=== PATIENT | female | born 1975 | race Caucasian/White ===

== ENCOUNTER 2016-10-22 21:29 | Emergency (ER) | payer MEDICAID, OTHER ==
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
[2016-10-22] MEDS ORDERED: Ketorolac 60 MG/2 ML SDV IM ONE (23:09)
[2016-10-22 23:47] VITALS: BP 136/99
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
== END 2016-10-22 23:47 | disposition home or self-care (01) ==
LOC: MW.ED 21:29
DX: S80.02XA Contusion of left knee, initial encounter (principal); S80.01XA Contusion of right knee, initial encounter; K21.9 Gastro-esophageal reflux disease without esophagitis; Z90.89 Acquired absence of other organs; Z90.710 Acquired absence of both cervix and uterus; V43.12XA Car passenger injured in collision with other type car in nontraffic accident, initial encounter
CPT/HCPCS: 73562; 73590; 73600; 96372; 99284; J1885; 99283

== ENCOUNTER 2016-10-31 18:55 | Emergency (ER) | payer MEDICAID, OTHER ==
[2016-10-31] MEDS ORDERED: Sodium Chloride 0.9% 10 ML Syringe FLUSH PRN (19:37)
[2016-10-31] MEDS ORDERED: Sodium Chloride 0.9% 2.5 ML Syringe FLUSH PRN (19:37)
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
[2016-10-31] MEDS: Albuterol/Ipratropium 3.0-0.5 MG/3 ML Neb Soln NEB ONE (19:48)
[2016-10-31 20:47] LABS: CHLORIDE,CL 107 mmol/L (98-110); SODIUM,NA 141 mmol/L (136-146)
[2016-10-31 21:47] VITALS: BP 126/79
[2016-10-31] MEDS: Acetaminophen 325 MG Tab PO ONE (21:53)
[2016-10-31] MEDS: Furosemide 40 MG/4 ML VIAL IVPUSH ONE (21:54)
--- NOTE | 2016-11-01 14:03 | CR ---
EXAM DATE: 10/31/16 PATIENT'S AGE: 41 Patient: ODIN [address] Facility: [place], [place] Site . Site : 1975 Study: XRay Chest [id number]/16/2017 8:26:32 PM Ordering Physician: Princess Tolentino Final Report: INDICATION: Chest pain, edema. COMPARISON: none TECHNIQUE: Two view chest. FINDINGS: The lungs are clear. There is no evidence a pneumothorax. The heart, mediastinum and pulmonary vessels are of normal size. There is no evidence of pleural fluid. IMPRESSION: Negative chest. Dictated by Richard Brunner MD @ Oct 31 2016 8:33PM (Electronic Signature) Report Signed by Proxy and Original Signed Document filed in the Medical Record. MTDD
== END 2016-10-31 22:12 | disposition home or self-care (01) ==
LOC: MW.ED 18:55
DX: R63.5 Abnormal weight gain (principal); K21.9 Gastro-esophageal reflux disease without esophagitis; Z98.51 Tubal ligation status; Z90.89 Acquired absence of other organs
CPT/HCPCS: 36415; 71020; 80053; 81001; 83880; 84484; 85025; 85652; 86140; 93005; 94664; 96374; 99284; A9270; J1940

== ENCOUNTER → 2016-11-08 | Outpatient (CLI) | payer MEDICAID | LOC: MW.CHFP 09:45 | PROVIDERS: ATTEND Nurse Practitioner Family | DX: R63.5 Abnormal weight gain (principal); M25.50 Pain in unspecified joint | CPT/HCPCS: 36415; 84443; 86430; 86431 ==

== ENCOUNTER 2016-11-26 08:25 | Emergency (ER) | payer MEDICAID ==
[2016-11-26] MEDS ORDERED: Benzocaine 20% Topical Spray UD MUCMEM ONE (08:41)
[2016-11-26] MEDS ORDERED: Lidocaine 2% Viscous Solution 15 ML Cup PO ONE (08:41)
--- NOTE | 2016-11-26 08:47 | EDM.PDOC ---
ED HPI GENERAL MEDICAL PROBLEM - General Chief Complaint: ENT Problem Stated Complaint: TOOTH Time Seen by Provider: 11/26/16 08:40 Source of Information: Reports: Patient History Limitations: Reports: No limitations - History of Present Illness INITIAL COMMENTS - FREE TEXT/NARRATIVE: History of present illness: [] Patient was eating breakfast and a left lower molar fell out. She just had a dental appointment to fix her upper teeth and has a plan to fix her lower teeth. She states she has pain over her gums the tooth fell out. Review of systems: As per history of present illness and below otherwise all systems reviewed and negative. Past medical history: As per history of present illness and as reviewed below otherwise noncontributory. Surgical history: As per history of present illness and as reviewed below otherwise noncontributory. Social history: No reported history of drug or alcohol abuse. Family history: As per history of present illness and as reviewed below otherwise noncontributory. Physical exam: General: Well developed, well nourished in NAD HEENT: Atraumatic, normocephalic, pupils reactive, negative for conjunctival pallor or scleral icterus, mucous membranes moist, throat clear, neck supple, nontender, trachea midline. No active bleeding. Patient has the tooth in his low back which looks decayed patient states she feels sharp edges where the tooth broke her left and her gum. Will not let me examine it Lungs: Clear to auscultation, breath sounds equal bilaterally, chest nontender. Heart: S1S2, regular, negative for clicks, rubs, or JVD. Abdomen: Soft, nondistended, nontender. Negative for masses or hepatosplenomegaly. Negative for costovertebral tenderness. Pelvis: Stable nontender. Genitourinary: Deferred. Rectal: Deferred. Extremities: Atraumatic, negative for cords or calf pain. Neurovascular unremarkable. Neuro: Awake, alert, oriented. Cranial nerves II through XII unremarkable. Cerebellum unremarkable. Motor and sensory unremarkable throughout. Exam nonfocal. Diagnostics: [] Therapeutics: [] Impression: [] Tooth fracture Plan: [] Dental balls for pain followup with dentist. Definitive disposition and diagnosis as appropriate pending reevaluation and review of above. 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 OB/BYN History: total hysterectomy 2012 Musculoskeletal History: Reports: None Neurological History: Reports: Other (see below) Other Neuro History: psuedo tumors Psychiatric History: Reports: None Endocrine/Metabolic History: Reports: None Hematologic History: Reports: None Immunologic History: Reports: None Oncologic (Cancer) History: Reports: None Dermatologic History: Reports: None - Infectious Disease History Infectious Disease History: Reports: None - Past Surgical History GI Surgical History: Reports: Cholecystectomy Female Surgical History: Reports: section, Tubal ligation Social & Family History - Family History Family Medical History: Noncontributory Other Oncologic Family History: mother have lung cancer & father have tumor in the face - Tobacco Use Smoking Status *Q: Never Smoker Second Hand Smoke Exposure: No - Caffeine Use Caffeine Use: Reports: Coffee - Recreational Drug Use Recreational Drug Use: No ED ROS GENERAL - Review of Systems Review Of Systems: See Below (See history of present illness) ED EXAM, GENERAL - Physical Exam Exam: See Below (See history of present illness) Course - Vital Signs Last Recorded V/S: Last Vital Signs Temp 36.2 C 11/26/16 08:35 Pulse 104 H 11/26/16 08:35 Resp 18 11/26/16 08:35 BP 128/87 11/26/16 08:35 Pulse Ox 97 11/26/16 08:35 - Orders/Labs/Meds Meds: Medications Discontinued Medications Generic Name Dose Route Start Last Admin Trade Name Javier PRN Reason Stop Dose Admin Benzocaine 2 each 11/26/16 08:41 Hurricaine One 20% MUCMEM 11/26/16 08:42 ONETIME ONE Lidocaine HCl 15 ml 11/26/16 08:41 Xylocaine 2% Viscous PO 11/26/16 08:42 ONETIME ONE Departure - Departure Time of Disposition: 08:45 Disposition: Home, Self-Care 01 Condition: good Clinical Impression: Broken tooth-uncomplic Qualifiers: Encounter type: initial encounter Fracture type: open Qualified Code(s): S02.5XXB - Fracture of tooth (traumatic), initial encounter for open fracture Forms: ED Department Discharge Additional Instructions: The following information is given to patients seen in the emergency department who are being discharged to home. This information is to outline your options for follow-up care. We provide all patients seen in our emergency department with a follow-up referral. The need for follow-up, as well as the timing and circumstances, are variable depending upon the specifics of your emergency department visit. If you don't have a primary care physician on staff, we will provide you with a referral. We always advise you to contact your personal physician following an emergency department visit to inform them of the circumstance of the visit and for follow-up with them and/or the need for any referrals to a consulting specialist. The emergency department will also refer you to a specialist when appropriate. This referral assures that you have the opportunity for follow-up care with a specialist. All of these measure are taken in an effort to provide you with optimal care, which includes your follow-up. Under all circumstances we always encourage you to contact your private physician who remains a resource for coordinating your care. When calling for follow-up care, please make the office aware that this follow-up is from your recent emergency room visit. If for any reason you are refused follow-up, please contact the [facility] Emergency Department at and asked to speak to the emergency department charge nurse. Dental balls for pain, followup with a dentist or primary care for pain control [facility] [address] [place] [id number]
[2016-11-26 09:00] VITALS: BP 126/72
== END 2016-11-26 08:53 | disposition home or self-care (01) ==
LOC: MW.ED 08:25
DX: S02.5XXB Fracture of tooth (traumatic), initial encounter for open fracture (principal); K02.9 Dental caries, unspecified; J45.909 Unspecified asthma, uncomplicated; K21.9 Gastro-esophageal reflux disease without esophagitis; Z90.710 Acquired absence of both cervix and uterus; Z90.49 Acquired absence of other specified parts of digestive tract; Z98.51 Tubal ligation status; X58.XXXA Exposure to other specified factors, initial encounter
CPT/HCPCS: 99282; A9270; 99283

== ENCOUNTER 2017-04-12 11:01 | Emergency (ER) | payer MEDICAID ==
[2017-04-12 11:13] VITALS: BP 150/89
--- NOTE | 2017-04-12 11:19 | EDM.PDOC ---
ED HPI GENERAL MEDICAL PROBLEM - General Chief Complaint: ENT Problem Stated Complaint: ABSCESS TOOTH Time Seen by Provider: 04/12/17 11:04 - History of Present Illness INITIAL COMMENTS - FREE TEXT/NARRATIVE: HISTORY AND PHYSICAL: History of present illness: Patient 41-year-old white female presents with a concern of dental pain is left upper molar region with associated swelling she denies fever chills nausea vomiting or other complaints Review of systems: As per history of present illness and below otherwise all systems reviewed and negative. Past medical history: As per history of present illness and as reviewed below otherwise noncontributory. Surgical history: As per history of present illness and as reviewed below otherwise noncontributory. Social history: No reported history of drug or alcohol abuse. Family history: As per history of present illness and as reviewed below otherwise noncontributory. Physical exam: HEENT: Atraumatic, normocephalic, pupils reactive, negative for conjunctival pallor or scleral icterus, mucous membranes moist, throat clear, neck supple, nontender, trachea midline. Generally poor dentition with multiple dental caries noted she does have gingival edema in the region of the left upper molar consistent with Lungs: Clear to auscultation, breath sounds equal bilaterally, chest nontender. Heart: S1S2, regular, negative for clicks, rubs, or JVD. Abdomen: Soft, nondistended, nontender. Negative for masses or hepatosplenomegaly. Negative for costovertebral tenderness. Pelvis: Stable nontender. Genitourinary: Deferred. Rectal: Deferred. Extremities: Atraumatic, negative for cords or calf pain. Neurovascular unremarkable. Neuro: Awake, alert, oriented. Cranial nerves II through XII unremarkable. Cerebellum unremarkable. Motor and sensory unremarkable throughout. Exam nonfocal. Diagnostics: None Therapeutics: None Impression: #1 dentalgia #2 dental caries #3 dental abscess Definitive disposition and diagnosis as appropriate pending reevaluation and review of above. 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 OB/BYN History: total hysterectomy 2012 Musculoskeletal History: Reports: None Neurological History: Reports: Other (See Below) Other Neuro History: psuedo tumors Psychiatric History: Reports: None Endocrine/Metabolic History: Reports: None Hematologic History: Reports: None Immunologic History: Reports: None Oncologic (Cancer) History: Reports: None Dermatologic History: Reports: None - Infectious Disease History Infectious Disease History: Reports: None - Past Surgical History Female Surgical History: Reports: Section, Tubal Ligation Social & Family History - Family History Family Medical History: Noncontributory Other Oncologic Family History: mother have lung cancer & father have tumor in the face - Tobacco Use Smoking Status *Q: Never Smoker Second Hand Smoke Exposure: No - Caffeine Use Caffeine Use: Reports: Coffee - Recreational Drug Use Recreational Drug Use: No ED ROS GENERAL - Review of Systems Review Of Systems: ROS reveals no pertinent complaints other than HPI. ED EXAM, GENERAL - Physical Exam Exam: See Below (See dictation) Course - Vital Signs Last Recorded V/S: Last Vital Signs Temp 36.5 C 04/12/17 11:09 Pulse 108 H 04/12/17 11:09 Resp 20 04/12/17 11:09 BP 150/89 H 04/12/17 11:09 Pulse Ox 96 04/12/17 11:09 Departure - Departure Time of Disposition: 11:19 Disposition: Home, Self-Care 01 Condition: Good Clinical Impression: Dental caries, Dental abscess, Dentalgia - Discharge Information Referrals: PCP,None [Primary Care Provider] -
== END 2017-04-12 11:25 | disposition home or self-care (01) ==
LOC: MW.ED 11:01
DX: K04.7 Periapical abscess without sinus (principal); K02.9 Dental caries, unspecified; J45.909 Unspecified asthma, uncomplicated; K21.9 Gastro-esophageal reflux disease without esophagitis; Z91.040 Latex allergy status; Z90.710 Acquired absence of both cervix and uterus
CPT/HCPCS: 99282

== ENCOUNTER 2017-04-14 15:47 | Emergency (ER) | payer MEDICAID ==
[2017-04-14] MEDS ORDERED: cefTRIAXone 1,000 MG in Lidocaine 1% 4 ML IM ONE (16:17)
[2017-04-14] MEDS ORDERED: Lidocaine 2% Viscous Solution 15 ML Cup PO ONE (16:17)
[2017-04-14] MEDS ORDERED: Benzocaine 20% Topical Spray UD MUCMEM ONE (16:17)
--- NOTE | 2017-04-14 16:19 | EDM.PDOC ---
ED HPI GENERAL MEDICAL PROBLEM - General Chief Complaint: General Stated Complaint: ABSCESS TOOTH Time Seen by Provider: 04/14/17 16:13 Source of Information: Reports: Patient History Limitations: Reports: No Limitations - History of Present Illness INITIAL COMMENTS - FREE TEXT/NARRATIVE: HISTORY AND PHYSICAL: []41-year-old female presenting with increasing edema to left side of her face History of Present Illness: []Patient patient was treated 2 days ago in ER for abscess to her tooth. Is worsening in her symptoms. Patient also has underlying asthma Review of Systems: As per history of present illness and below otherwise all systems reviewed and negative. Past medical history: As per history of present illness and as reviewed below otherwise noncontributory. Surgical history: As per history of present illness and as reviewed below otherwise noncontributory. Social history: No reported history of drug or alcohol abuse. Family history: As per history of present illness and as reviewed below otherwise noncontributory. Physical exam: Alert and oriented female who is speaking in full sentences mild shortness of breath HEENT: Atraumatic, normocehpalic, pupils reactive, negative for conjunctival pallor or scleral icterus, mucous membranes moist, throat clear, neck supple, nontender, trachea midline. Edema noted to the left lower jaw. Exquisite tenderness noted to the left lower jaw at tooth #17 & #18 Lungs: Clear to auscultation, breath sounds equal bilaterally, chest non tender. Heart: S1S2, regular, negative for clicks, rubs, or JVD. Abdomen: Soft, nondistended, nontender. Negative for masses or hepatossplenmegaly. Negative for costovertebral tenderness. Pelvis: Stable nontender. Genitourinary: Deferred. Rectal: Deferred Extremities: Atraumatic, negative for cords or calf pain. Neurovascular unremarkable. Neuro: Awake, alert, oriented. Cranial nerves II through XII unremarkable. Cerebellum unremarkable. Motor and sensory unremarkable throughout. Exam nonfocal. Diagnostics: [] Therapeutics: [Dental balls] Rocephin IM Impression: [Dental abscess] Plan: [Discharged to home Change to Augmentin 875 twice a day Follow-up with your dentist next week] Definitive disposition and diagnosis as appropriate pending reevaluation and review of above. Onset: Gradual Duration: Day(s):, Getting Worse Location: Reports: Face - Related Data Allergies Allergy/AdvReac Type Severity Reaction Status Date / Time latex Allergy Airway Verified 10/31/16 19:07 Tightness Home Meds: Home Meds Albuterol Sulfate [Proair Hfa] 8.5 gm IH ASDIRECTED 07/22/16 [History] Gabapentin [Neurontin] 400 mg PO BID 11/26/16 [History] Amoxicillin/Potassium Clav [Augmentin 875-125 Tablet] 1 each PO BID #20 tablet 04/14/17 [Rx] Past Medical History HEENT History: Reports: None Cardiovascular History: Reports: None Respiratory History: Reports: Asthma Gastrointestinal History: Reports: GERD Genitourinary History: Reports: None 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 OB/BYN History: total hysterectomy 2012 Musculoskeletal History: Reports: None Neurological History: Reports: Other (See Below) Other Neuro History: psuedo tumors Psychiatric History: Reports: None Endocrine/Metabolic History: Reports: None Hematologic History: Reports: None Immunologic History: Reports: None Oncologic (Cancer) History: Reports: None Dermatologic History: Reports: None - Infectious Disease History Infectious Disease History: Reports: None - Past Surgical History Female Surgical History: Reports: Section, Tubal Ligation Social & Family History - Family History Family Medical History: Noncontributory Other Oncologic Family History: mother have lung cancer & father have tumor in the face - Tobacco Use Smoking Status *Q: Never Smoker Second Hand Smoke Exposure: No - Caffeine Use Caffeine Use: Reports: Coffee - Recreational Drug Use Recreational Drug Use: No ED ROS GENERAL - Review of Systems Review Of Systems: ROS reveals no pertinent complaints other than HPI. ED EXAM, GENERAL - Physical Exam Exam: See Below (See dictation) Departure - Departure Time of Disposition: 16:19 Disposition: Home, Self-Care 01 Condition: Good Clinical Impression: Dental abscess - Discharge Information Prescriptions: Amoxicillin/Potassium Clav [Augmentin 875-125 Tablet] 1 each PO BID #20 tablet Referrals: PCP,None [Primary Care Provider] -
[2017-04-14] MEDS ORDERED: Albuterol/Ipratropium 3.0-0.5 MG/3 ML Neb Soln NEB ONE (16:34)
[2017-04-14 16:58] VITALS: BP 120/78
== END 2017-04-14 16:55 | disposition home or self-care (01) ==
LOC: MW.ED 15:47
DX: K04.7 Periapical abscess without sinus (principal); J45.909 Unspecified asthma, uncomplicated; K21.9 Gastro-esophageal reflux disease without esophagitis; Z91.040 Latex allergy status; Z90.710 Acquired absence of both cervix and uterus
CPT/HCPCS: 94664; 96372; 99284; A9270; J0696; 99282

== ENCOUNTER 2017-08-15 01:19 | Emergency (ER) | payer MEDICAID ==
[2017-08-15 01:31] VITALS: BP 149/96
--- NOTE | 2017-08-15 01:43 | EDM.PDOC ---
ED HPI GENERAL MEDICAL PROBLEM - General Chief Complaint: ENT Problem Stated Complaint: TOOTH ACHE Time Seen by Provider: 08/15/17 01:39 - History of Present Illness INITIAL COMMENTS - FREE TEXT/NARRATIVE: HISTORY AND PHYSICAL: History of present illness: Patient's 42-year-old white female sensory concern of dental pain has been worse over last 2448 hrs. she denies any fever chills nausea vomiting Review of systems: As per history of present illness and below otherwise all systems reviewed and negative. Past medical history: As per history of present illness and as reviewed below otherwise noncontributory. Surgical history: As per history of present illness and as reviewed below otherwise noncontributory. Social history: No reported history of drug or alcohol abuse. Family history: As per history of present illness and as reviewed below otherwise noncontributory. Physical exam: HEENT: Atraumatic, normocephalic, pupils reactive, negative for conjunctival pallor or scleral icterus, mucous membranes moist, throat clear, neck supple, nontender, trachea midline. Generally poor dentition with a left lower molar with dental caries and secondary dental fracture Lungs: Clear to auscultation, breath sounds equal bilaterally, chest nontender. Heart: S1S2, regular, negative for clicks, rubs, or JVD. Abdomen: Soft, nondistended, nontender. Negative for masses or hepatosplenomegaly. Negative for costovertebral tenderness. Pelvis: Stable nontender. Genitourinary: Deferred. Rectal: Deferred. Extremities: Atraumatic, negative for cords or calf pain. Neurovascular unremarkable. Neuro: Awake, alert, oriented. Cranial nerves II through XII unremarkable. Cerebellum unremarkable. Motor and sensory unremarkable throughout. Exam nonfocal. Diagnostics: None Therapeutics: None Impression: #1 dentalgia #2 dental cariewith secondary dental fracture #3 dental abscess dental pain Pain Score (Numeric/FACES): 10 - Related Data Allergies Allergy/AdvReac Type Severity Reaction Status Date / Time latex Allergy Airway Verified 08/15/17 01:29 Tightness Home Meds: Home Meds Albuterol Sulfate [Proair Hfa] 8.5 gm IH ASDIRECTED 07/22/16 [History] Gabapentin [Neurontin] 400 mg PO BID 11/26/16 [History] Amoxicillin/Potassium Clav [Augmentin 875-125 Tablet] 1 each PO BID #20 tablet 04/14/17 [Rx] methylPREDNISolone [Medrol] 4 mg PO ASDIRECTED #1 dosepk 04/14/17 [Rx] Past Medical History HEENT History: Reports: None Cardiovascular History: Reports: None Respiratory History: Reports: Asthma Gastrointestinal History: Reports: GERD Genitourinary History: Reports: None 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 OB/BYN History: total hysterectomy 2012 Musculoskeletal History: Reports: None Neurological History: Reports: Other (See Below) Other Neuro History: psuedo tumors Psychiatric History: Reports: None Endocrine/Metabolic History: Reports: None Hematologic History: Reports: None Immunologic History: Reports: None Oncologic (Cancer) History: Reports: None Dermatologic History: Reports: None - Infectious Disease History Infectious Disease History: Reports: None - Past Surgical History GI Surgical History: Reports: Cholecystectomy Female Surgical History: Reports: Section, Tubal Ligation Social & Family History - Family History Family Medical History: Noncontributory Other Oncologic Family History: mother have lung cancer & father have tumor in the face - Tobacco Use Smoking Status *Q: Never Smoker Second Hand Smoke Exposure: No - Caffeine Use Caffeine Use: Reports: Coffee - Recreational Drug Use Recreational Drug Use: No ED ROS GENERAL - Review of Systems Review Of Systems: ROS reveals no pertinent complaints other than HPI. ED EXAM, GENERAL - Physical Exam Exam: See Below (dictated) Course - Vital Signs Last Recorded V/S: Last Vital Signs Temp 36.2 C 08/15/17 01:29 Pulse 90 08/15/17 01:29 Resp 18 08/15/17 01:29 BP 149/96 H 08/15/17 01:29 Pulse Ox 98 08/15/17 01:29 Departure - Departure Time of Disposition: 01:42 Disposition: Home, Self-Care 01 Condition: Good Clinical Impression: Fracture of tooth, Dental caries, Dental abscess, Dentalgia - Discharge Information Referrals: PCP,None [Primary Care Provider] - Additional Instructions: The following information is given to patients seen in the emergency department who are being discharged to home. This information is to outline your options for follow-up care. We provide all patients seen in our emergency department with a follow-up referral. The need for follow-up, as well as the timing and circumstances, are variable depending upon the specifics of your emergency department visit. If you don't have a primary care physician on staff, we will provide you with a referral. We always advise you to contact your personal physician following an emergency department visit to inform them of the circumstance of the visit and for follow-up with them and/or the need for any referrals to a consulting specialist. The emergency department will also refer you to a specialist when appropriate. This referral assures that you have the opportunity for followup care with a specialist. All of these measure are taken in an effort to provide you with optimal care, which includes your followup. Under all circumstances we always encourage you to contact your private physician who remains a resource for coordinating your care. When calling for followup care, please make the office aware that this follow-up is from your recent emergency room visit. If for any reason you are refused follow-up, please contact the [facility] emergency department at and asked to speak to the emergency department charge nurse. Mahad Stephens as prescribed follow-up dentist as discussed return as needed as discussed
== END 2017-08-15 02:00 | disposition home or self-care (01) ==
LOC: MW.ED 01:19
DX: K03.81 Cracked tooth (principal); K02.9 Dental caries, unspecified; K04.7 Periapical abscess without sinus; J45.909 Unspecified asthma, uncomplicated; Z91.040 Latex allergy status
CPT/HCPCS: 99282

== ENCOUNTER 2017-10-03 16:23 | Emergency (ER) | payer SELFPAY ==
--- NOTE | 2017-10-03 17:11 | EDM.PDOC ---
ED HPI GENERAL MEDICAL PROBLEM - General Chief Complaint: Gastrointestinal Problem Stated Complaint: PT VOMITING Time Seen by Provider: 10/03/17 17:00 - History of Present Illness INITIAL COMMENTS - FREE TEXT/NARRATIVE: HISTORY AND PHYSICAL: History of present illness: Patient is 42-year-old female presents with concern of vomiting and possible influenza she states she's been exposed to other people similar illnesses. She denies fever chills abdominal pain other concern Review of systems: As per history of present illness and below otherwise all systems reviewed and negative. Past medical history: As per history of present illness and as reviewed below otherwise noncontributory. Surgical history: As per history of present illness and as reviewed below otherwise noncontributory. Social history: No reported history of drug or alcohol abuse. Family history: As per history of present illness and as reviewed below otherwise noncontributory. Physical exam: HEENT: Atraumatic, normocephalic, pupils reactive, negative for conjunctival pallor or scleral icterus, mucous membranes dry, throat clear, neck supple, nontender, trachea midline. Lungs: Clear to auscultation, breath sounds equal bilaterally, chest nontender. Heart: S1S2, regular, negative for clicks, rubs, or JVD. Abdomen: Soft, nondistended, nontender. Negative for masses or hepatosplenomegaly. Negative for costovertebral tenderness. Pelvis: Stable nontender. Genitourinary: Deferred. Rectal: Deferred. Extremities: Atraumatic, negative for cords or calf pain. Neurovascular unremarkable. Neuro: Awake, alert, oriented. Cranial nerves II through XII unremarkable. Cerebellum unremarkable. Motor and sensory unremarkable throughout. Exam nonfocal. Diagnostics: CBC CMP and lipase UA hCG Therapeutics: Normal saline 1 L bolus Impression: # 1 vomiting with dehydration Definitive disposition and diagnosis as appropriate pending reevaluation and review of above. - Related Data Allergies Allergy/AdvReac Type Severity Reaction Status Date / Time latex Allergy Airway Verified 08/15/17 01:29 Tightness Home Meds: Home Meds Albuterol Sulfate [Proair Hfa] 8.5 gm IH ASDIRECTED 07/22/16 [History] Gabapentin [Neurontin] 400 mg PO BID 11/26/16 [History] Amoxicillin/Potassium Clav [Augmentin 875-125 Tablet] 1 each PO BID #20 tablet 04/14/17 [Rx] methylPREDNISolone [Medrol] 4 mg PO ASDIRECTED #1 dosepk 04/14/17 [Rx] Past Medical History HEENT History: Reports: None Cardiovascular History: Reports: None Respiratory History: Reports: Asthma Gastrointestinal History: Reports: GERD Genitourinary History: Reports: None [employer] History: Reports: Other OB/BYN History: total hysterectomy 2012 Musculoskeletal History: Reports: None Neurological History: Reports: Other (See Below) Other Neuro History: psuedo tumors Psychiatric History: Reports: None Endocrine/Metabolic History: Reports: None Hematologic History: Reports: None Immunologic History: Reports: None Oncologic (Cancer) History: Reports: None Dermatologic History: Reports: None - Infectious Disease History Infectious Disease History: Reports: None - Past Surgical History GI Surgical History: Reports: Cholecystectomy Female Surgical History: Reports: Section, Tubal Ligation Social & Family History - Family History Family Medical History: Noncontributory Other Oncologic Family History: mother have lung cancer & father have tumor in the face - Tobacco Use Smoking Status *Q: Never Smoker Second Hand Smoke Exposure: No - Caffeine Use Caffeine Use: Reports: Coffee - Recreational Drug Use Recreational Drug Use: No ED ROS GENERAL - Review of Systems Review Of Systems: ROS reveals no pertinent complaints other than HPI. ED EXAM, GENERAL - Physical Exam Exam: See Below (See dictation) Course - Orders/Labs/Meds Orders: Active Orders 24 hr Category Date Time Status CBC WITH AUTO DIFF [HEME] Stat Lab 10/03/17 17:00 Ordered COMPREHENSIVE METABOLIC PN,CMP [CHEM] Stat Lab 10/03/17 17:00 Ordered HCG QUALITATIVE,SERUM [CHEM] Stat Lab 10/03/17 17:00 Ordered LIPASE [CHEM] Stat Lab 10/03/17 17:01 Ordered UA W/MICROSCOPIC [URIN] Stat Lab 10/03/17 17:00 Ordered Departure - Departure Time of Disposition: 17:10 Disposition: Home, Self-Care 01 Condition: Good Clinical Impression: Vomiting, Dehydration - Discharge Information Referrals: PCP,None [Primary Care Provider] - Additional Instructions: The following information is given to patients seen in the emergency department who are being discharged to home. This information is to outline your options for follow-up care. We provide all patients seen in our emergency department with a follow-up referral. The need for follow-up, as well as the timing and circumstances, are variable depending upon the specifics of your emergency department visit. If you don't have a primary care physician on staff, we will provide you with a referral. We always advise you to contact your personal physician following an emergency department visit to inform them of the circumstance of the visit and for follow-up with them and/or the need for any referrals to a consulting specialist. The emergency department will also refer you to a specialist when appropriate. This referral assures that you have the opportunity for followup care with a specialist. All of these measure are taken in an effort to provide you with optimal care, which includes your followup. Under all circumstances we always encourage you to contact your private physician who remains a resource for coordinating your care. When calling for followup care, please make the office aware that this follow-up is from your recent emergency room visit. If for any reason you are refused follow-up, please contact the [facility] emergency department at and asked to speak to the emergency department charge nurse. Follow-up primary medical doctor 1-2 days Zofran as prescribed push fluids clear liquids as directed and return as needed as discussed - My Orders Last 24 Hours: My Active Orders 10/03/17 17:00 CBC WITH AUTO DIFF [HEME] Stat COMPREHENSIVE METABOLIC PN,CMP [CHEM] Stat HCG QUALITATIVE,SERUM [CHEM] Stat UA W/MICROSCOPIC [URIN] Stat 10/03/17 17:01 LIPASE [CHEM] Stat - Assessment/Plan Last 24 Hours: My Active Orders 10/03/17 17:00 CBC WITH AUTO DIFF [HEME] Stat COMPREHENSIVE METABOLIC PN,CMP [CHEM] Stat HCG QUALITATIVE,SERUM [CHEM] Stat UA W/MICROSCOPIC [URIN] Stat 10/03/17 17:01 LIPASE [CHEM] Stat
[2017-10-03] MEDS ORDERED: Ondansetron 4 MG/2 ML SDV IVPUSH ONE (17:35)
[2017-10-03] MEDS ORDERED: Sodium Chloride 0.9% 1,000 ML IV ONE (17:35)
[2017-10-03 17:42] LABS: CHLORIDE,CL 103 mmol/L (98-110); SODIUM,NA 138 mmol/L (136-146)
[2017-10-03 18:45] VITALS: BP 121/87
== END 2017-10-03 18:46 | disposition home or self-care (01) ==
LOC: MW.ED 16:23
DX: E86.0 Dehydration (principal); R11.10 Vomiting, unspecified; J45.909 Unspecified asthma, uncomplicated; Z91.040 Latex allergy status
CPT/HCPCS: 36415; 80053; 81001; 83690; 84702; 84703; 85025; 87804; 96374; 99284; J2405; J7040; 99283

== ENCOUNTER 2017-10-13 14:30 | Emergency (ER) | payer SELFPAY ==
--- NOTE | 2017-10-13 15:50 | CR ---
EXAMINATION: Two-view chest (PA and Lateral views). HISTORY: Shortness of breath. FINDINGS: The trachea is midline. The cardiomediastinal silhouette is within normal limits. No pulmonary infilt rates, effusions or pneumothorax. Osseous structures appear unremarkable. IMPRESSION: No acute cardiopulmonary process.
[2017-10-13] MEDS ORDERED: Albuterol/Ipratropium 3.0-0.5 MG/3 ML Neb Soln NEB ONE ×2 (15:55→16:25)
[2017-10-13] MEDS ORDERED: methylPREDNISolone Sodium Succinate 125 MG/2 ML SDV IVPUSH ONE (15:55)
--- NOTE | 2017-10-13 16:05 | EDM.PDOC ---
ED HPI GENERAL MEDICAL PROBLEM - General Chief Complaint: Respiratory Problem Stated Complaint: COUGH, SOB Time Seen by Provider: 10/13/17 15:50 Source of Information: Reports: Patient History Limitations: Reports: No Limitations - History of Present Illness INITIAL COMMENTS - FREE TEXT/NARRATIVE: HISTORY AND PHYSICAL: History of present illness: Patient is a 42-year-old female who presents to the emergency room with complaints of cough and shortness of breath 1 month. She states that she has a history of asthma and has been using her inhaler frequently. She feels that her inhaler is no longer controlling her symptoms. states she has coughing spells and is concerned she may have a pneumonia. Has no history of smoking. Denies any fever, chills, chest pain, abdominal pain, nausea, vomiting or diarrhea. Last week did have an episode of GI symptoms but those have resolved. Review of systems: As per history of present illness and below otherwise all systems reviewed and negative. Past medical history: As per history of present illness and as reviewed below otherwise noncontributory. Surgical history: As per history of present illness and as reviewed below otherwise noncontributory. Social history: No reported history of drug or alcohol abuse. Family history: As per history of present illness and as reviewed below otherwise noncontributory. Physical exam: General: Well-developed and well-nourished 42-year-old female. Alert and oriented. Nontoxic appearing and in no acute distress. HEENT: Atraumatic, normocephalic, pupils reactive, negative for conjunctival pallor or scleral icterus, mucous membranes moist, throat clear, neck supple, nontender, trachea midline. Lungs: inspiratory next week. Wheezing noted to posterior bases bilaterally, otherwise clear, chest nontender. dry nonproductive, hacking, cough noted. Heart: S1S2, regular rate and rhythm, no overt murmur Abdomen: Soft, nondistended, nontender. Negative for masses or hepatosplenomegaly. Negative for costovertebral tenderness. Pelvis: Stable nontender. Genitourinary: Deferred. Rectal: Deferred. Extremities: Atraumatic, negative for cords or calf pain. Neurovascular unremarkable. Neuro: Awake, alert, oriented. Cranial nerves II through XII unremarkable. Cerebellum unremarkable. Motor and sensory unremarkable throughout. Exam nonfocal. Oxygen sats remain 90-93% on RA after 2 duo neb treatments. Her lung sounds have improved, better air exchange. Did offer her admission, which she declined. Chest x-ray shows no pneumonia or infiltrates. Due to patient's longevity of symptoms, history of asthma and physical assessment and will treat her with azithromycin and Medrol Dosepak. She states she has been using her daughter's DuoNeb as she has a machine, and is requesting medication for home use. Phenergan with codiene (4oz-NRF) and DuoNeb (#1 box) has been prescribed for comfort. Supportive care measures were reviewed. We discussed signs and symptoms that would prompt her to come back to the emergency room. She voices understanding and is agreeable to plan of care. She denies any further questions at this time. Diagnostics: chest x-ray Therapeutics: Solu-Medrol, DuoNeb Impression: Bronchitis, with a history of asthma Plan: 1. Please take your medications as directed. Phenergan with Codiene has been prescribed for your cough. Do not take this will driving or needing to be functioning outside of the home as it may cause drowsiness. You may continue to use your inhaler, do not take more than directed. Duo Nebs have been prescribed for difficulty breathing/ shortness of breath. 2. Follow-up with your primary care provider in the next 1-2 days. Return to the ED as needed and as discussed. Definitive disposition and diagnosis as appropriate pending reevaluation and review of above. Duration: Week(s): Location: Reports: Chest Chest Pain Score (Numeric/FACES): 4 - Related Data Allergies Allergy/AdvReac Type Severity Reaction Status Date / Time latex Allergy Airway Verified 08/15/17 01:29 Tightness Penicillins Allergy Other Verified 10/13/17 15:04 Home Meds: Home Meds Albuterol Sulfate [Proair Hfa] 8.5 gm IH ASDIRECTED 07/22/16 [History] Folic Acid 0.8 mg PO DAILY 10/13/17 [History] Methotrexate 2.5 mg PO Q7D 10/13/17 [History] Past Medical History HEENT History: Reports: None Cardiovascular History: Reports: None Respiratory History: Reports: Asthma Gastrointestinal History: Reports: GERD Genitourinary History: Reports: None [employer]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[employer]IVE History: Reports: Other OB/BYN History: total hysterectomy 2013 Musculoskeletal History: Reports: None Neurological History: Reports: Other (See Below) Other Neuro History: psuedo tumors Psychiatric History: Reports: None Endocrine/Metabolic History: Reports: None Hematologic History: Reports: None Immunologic History: Reports: None Oncologic (Cancer) History: Reports: None Dermatologic History: Reports: None - Infectious Disease History Infectious Disease History: Reports: None - Past Surgical History GI Surgical History: Reports: Cholecystectomy Female Surgical History: Reports: Section, Tubal Ligation Social & Family History - Family History Family Medical History: Noncontributory Other Oncologic Family History: mother have lung cancer & father have tumor in the face - Tobacco Use Smoking Status *Q: Never Smoker Second Hand Smoke Exposure: No - Caffeine Use Caffeine Use: Reports: Coffee, Energy Drinks, Soda, Tea - Recreational Drug Use Recreational Drug Use: No ED ROS GENERAL - Review of Systems Review Of Systems: ROS reveals no pertinent complaints other than HPI. ED EXAM, GENERAL - Physical Exam Exam: See Below (See dictation) Course - Vital Signs Last Recorded V/S: Last Vital Signs Temp 98.5 F 10/13/17 15:11 Pulse 103 H 10/13/17 15:11 Resp 18 10/13/17 15:11 BP 135/86 10/13/17 15:11 Pulse Ox 92 L 10/13/17 15:11 - Orders/Labs/Meds Orders: Active Orders 24 hr Category Date Time Status RT Aerosol Therapy [RC] ASDIRECTED Care 10/13/17 15:55 Active RT Aerosol Therapy [RC] ASDIRECTED Care 10/13/17 16:25 Active Meds: Medications Discontinued Medications Generic Name Dose Route Start Last Admin Trade Name Javier PRN Reason Stop Dose Admin Albuterol/Ipratropium 3 ml 10/13/17 15:55 10/13/17 16:10 Duoneb 3.0-0.5 Mg/3 Ml NEB 10/13/17 15:56 3 ml ONETIME ONE Administration Albuterol/Ipratropium 3 ml 10/13/17 16:25 10/13/17 16:29 Duoneb 3.0-0.5 Mg/3 Ml NEB 10/13/17 16:26 3 ml ONETIME ONE Administration Methylprednisolone Sodium Succinate 125 mg 10/13/17 15:55 10/13/17 16:09 Solu-Medrol IVPUSH 10/13/17 15:56 125 mg ONETIME ONE Administration Departure - Departure Time of Disposition: 16:05 Disposition: Home, Self-Care 01 Clinical Impression: Bronchitis - Discharge Information Instructions: Acute Bronchitis, Adult, [id number] Referrals: Ramirez Salazar DO [Primary Care Provider] - Forms: ED Department Discharge Additional Instructions: My general discharge The following information is given to patients seen in the emergency department who are being discharged to home. This information is to outline your options for follow-up care. We provide all patients seen in our emergency department with a follow-up referral. The need for follow-up, as well as the timing and circumstances, are variable depending upon the specifics of your emergency department visit. If you don't have a primary care physician on staff, we will provide you with a referral. We always advise you to contact your personal physician following an emergency department visit to inform them of the circumstance of the visit and for follow-up with them and/or the need for any referrals to a consulting specialist. The emergency department will also refer you to a specialist when appropriate. This referral assures that you have the opportunity for follow-up care with a specialist. All of these measure are taken in an effort to provide you with optimal care, which includes your follow-up. Under all circumstances we always encourage you to contact your private physician who remains a resource for coordinating your care. When calling for follow-up care, please make the office aware that this follow-up is from your recent emergency room visit. If for any reason you are refused follow-up, please contact the [facility] Emergency Department at and asked to speak to the emergency department charge nurse. [facility] [address] [place] [id number] 1. Please take your medications as directed. Phenergan with Codiene has been prescribed for your cough. Do not take this will driving or needing to be functioning outside of the home as it may cause drowsiness. You may continue to use your inhaler, do not take more than directed. Duo Nebs have been prescribed for difficulty breathing/ shortness of breath. 2. Follow-up with your primary care provider in the next 1-2 days. Return to the ED as needed and as discussed. - My Orders Last 24 Hours: My Active Orders 10/13/17 15:55 RT Aerosol Therapy [RC] ASDIRECTED 10/13/17 16:25 RT Aerosol Therapy [RC] ASDIRECTED - Assessment/Plan Last 24 Hours: My Active Orders 10/13/17 15:55 RT Aerosol Therapy [RC] ASDIRECTED 10/13/17 16:25 RT Aerosol Therapy [RC] ASDIRECTED
[2017-10-13 16:57] VITALS: BP 122/84
== END 2017-10-13 16:54 | disposition home or self-care (01) ==
LOC: MW.ED 14:30
DX: J40 Bronchitis, not specified as acute or chronic (principal); K21.9 Gastro-esophageal reflux disease without esophagitis; Z88.0 Allergy status to penicillin; Z91.040 Latex allergy status
CPT/HCPCS: 71046; 94640; 96372; 99283; J2930; 99284

== ENCOUNTER 2017-10-22 12:39 | Emergency (ER) | payer SELFPAY ==
[2017-10-22] MEDS ORDERED: Albuterol/Ipratropium 3.0-0.5 MG/3 ML Neb Soln ONE (13:12)
[2017-10-22] MEDS ORDERED: Albuterol 0.5% 5 MG/ML Neb Soln 20 ML Bottle NEB ONE (13:16)
[2017-10-22] MEDS ORDERED: Albuterol/Ipratropium 3.0-0.5 MG/3 ML Neb Soln NEB ONE (13:17)
[2017-10-22] MEDS ORDERED: predniSONE 20 MG Tab PO ONE (13:18)
[2017-10-22] MEDS ORDERED: Sodium Chloride 0.9% 2.5 ML Syringe FLUSH PRN (13:45)
[2017-10-22] MEDS ORDERED: Sodium Chloride 0.9% 1,000 ML IV ONE (13:45)
[2017-10-22] MEDS ORDERED: Sodium Chloride 0.9% 10 ML Syringe FLUSH PRN (13:45)
[2017-10-22] MEDS ORDERED: Magnesium Sulfate/Water 2 GM in Premix Bag 1 BAG IV ONE (13:45)
[2017-10-22] MEDS ORDERED: Albuterol 0.083% 2.5 MG/3 ML Neb Soln NEB ONE (13:45)
--- NOTE | 2017-10-22 15:35 | EDM.PDOC ---
ED HPI GENERAL MEDICAL PROBLEM - General Chief Complaint: Respiratory Problem Stated Complaint: COUGH Time Seen by Provider: 10/22/17 12:40 Source of Information: Reports: Patient History Limitations: Reports: No Limitations - History of Present Illness INITIAL COMMENTS - FREE TEXT/NARRATIVE: History of present illness: []Patient has had a cough for a month that has intermittently improved with antibiotics, inhalers and steroids. Today symptoms have worsened and she ran out of her usual inhaler. Review of systems: As per history of present illness and below otherwise all systems reviewed and negative. Past medical history: As per history of present illness and as reviewed below otherwise noncontributory. Surgical history: As per history of present illness and as reviewed below otherwise noncontributory. Social history: No reported history of drug or alcohol abuse. Family history: As per history of present illness and as reviewed below otherwise noncontributory. Physical exam: General: Well developed, well nourished in respiratory distress HEENT: Atraumatic, normocephalic, pupils reactive, negative for conjunctival pallor or scleral icterus, mucous membranes moist, throat clear, neck supple, nontender, trachea midline. Lungs: Seen bilaterally to auscultation, breath sounds equal bilaterally, chest nontender. Heart: S1S2, regular, negative for clicks, rubs, or JVD. Abdomen: Soft, nondistended, nontender. Negative for masses or hepatosplenomegaly. Negative for costovertebral tenderness. Pelvis: Stable nontender. Genitourinary: Deferred. Rectal: Deferred. Extremities: Atraumatic, negative for cords or calf pain. Neurovascular unremarkable. Neuro: Awake, alert, oriented. Cranial nerves II through XII unremarkable. Cerebellum unremarkable. Motor and sensory unremarkable throughout. Exam nonfocal. Diagnostics: []Tachycardic and hypoxic. CBC Shows white count of 13 without a shift, chemistries normal chest x-ray is negative Therapeutics: []IV fluid, DuoNeb 3, albuterol 2, prednisone, magnesium Impression: []Acute chronic bronchitis Plan: []Medrol Dosepak, Combivent inhaler Tessalon pearls for cough increase fluids follow-up with PMD. Definitive disposition and diagnosis as appropriate pending reevaluation and review of above. Chest Pain Score (Numeric/FACES): 3 - Related Data Allergies Allergy/AdvReac Type Severity Reaction Status Date / Time latex Allergy Airway Verified 10/22/17 13:05 Tightness Penicillins Allergy Other Verified 10/22/17 13:05 Home Meds: Home Meds Albuterol Sulfate [Proair Hfa] 8.5 gm IH ASDIRECTED 07/22/16 [History] Folic Acid 0.8 mg PO DAILY 10/13/17 [History] Methotrexate 2.5 mg PO Q7D 10/13/17 [History] Albuterol/Ipratropium [Combivent Respimat] 4 gm IH Q4HR PRN #1 inhaler 10/22/17 [Rx] Benzonatate [Tessalon Perle] 100 mg PO TID PRN #20 capsule 10/22/17 [Rx] methylPREDNISolone [Medrol] 4 mg PO ASDIRECTED #1 dosepk 10/22/17 [Rx] methylPREDNISolone [Medrol] 4 mg PO ASDIRECTED #1 tab.ds.pk 10/22/17 [Rx] Past Medical History HEENT History: Reports: None Cardiovascular History: Reports: None Respiratory History: Reports: Asthma Gastrointestinal History: Reports: GERD Genitourinary History: Reports: None W[employer]ER History: Reports: Other OB/BYN History: total hysterectomy 2012 Musculoskeletal History: Reports: None Neurological History: Reports: Other (See Below) Other Neuro History: psuedo tumors Psychiatric History: Reports: None Endocrine/Metabolic History: Reports: None Hematologic History: Reports: None Immunologic History: Reports: None Oncologic (Cancer) History: Reports: None Dermatologic History: Reports: None - Infectious Disease History Infectious Disease History: Reports: None - Past Surgical History GI Surgical History: Reports: Cholecystectomy Female Surgical History: Reports: Section, Tubal Ligation Social & Family History - Family History Family Medical History: Noncontributory Other Oncologic Family History: mother have lung cancer & father have tumor in the face - Tobacco Use Smoking Status *Q: Never Smoker Second Hand Smoke Exposure: No - Caffeine Use Caffeine Use: Reports: Coffee, Energy Drinks, Soda, Tea - Recreational Drug Use Recreational Drug Use: No ED ROS GENERAL - Review of Systems Review Of Systems: See Below (See history of present illness) ED EXAM, GENERAL - Physical Exam Exam: See Below (See history of present illness) Course - Vital Signs Last Recorded V/S: Last Vital Signs Temp 97.3 F 10/22/17 13:01 Pulse 119 H 10/22/17 15:35 Resp 20 10/22/17 15:35 BP 160/99 H 10/22/17 15:35 Pulse Ox 93 L 10/22/17 15:35 - Orders/Labs/Meds Orders: Active Orders 24 hr Category Date Time Status RT Aerosol Therapy [RC] ASDIRECTED Care 10/22/17 13:16 Active RT Aerosol Therapy [RC] ASDIRECTED Care 10/22/17 13:17 Active RT Aerosol Therapy [RC] ASDIRECTED Care 10/22/17 13:45 Active Sodium Chloride 0.9% [Saline Flush] Med 10/22/17 13:45 Active 10 ml FLUSH ASDIRECTED PRN Sodium Chloride 0.9% [Saline Flush] Med 10/22/17 13:45 Active 2.5 ml FLUSH ASDIRECTED PRN Saline Lock Insert [OM.PC] Stat Oth 10/22/17 13:45 Ordered Medication Orders Sodium Chloride (Saline Flush) 10 ml FLUSH ASDIRECTED PRN PRN Reason: Keep Vein Open Sodium Chloride (Saline Flush) 2.5 ml FLUSH ASDIRECTED PRN PRN Reason: Keep Vein Open Labs: Laboratory Tests 10/22/17 10/22/17 10/22/17 Range/Units 14:21 14:21 14:21 WBC 13.57 H (4.0-11.0) K/uL RBC 4.84 (4.30-5.90) M/uL Hgb 13.7 (12.0-16.0) g/dL Hct 42.9 (36.0-46.0) % MCV 88.6 (80.0-98.0) fL MCH 28.3 (27.0-32.0) pg MCHC 31.9 (31.0-37.0) g/dL RDW Std Deviation 48.5 (28.0-62.0) fl RDW Coeff of Cecilia 15 (11.0-15.0) % Plt Count 363 (150-400) K/uL MPV 9.70 (7.40-12.00) fL Neut % (Auto) 57.7 (48.0-80.0) % Lymph % (Auto) 29.6 (16.0-40.0) % [place] % (Auto) 4.6 (0.0-15.0) % Eos % (Auto) 7.7 H (0.0-7.0) % Baso % (Auto) 0.4 (0.0-1.5) % Neut # (Auto) 7.8 H (1.4-5.7) K/uL Lymph # (Auto) 4.0 H (0.6-2.4) K/uL [place] # (Auto) 0.6 (0.0-0.8) K/uL Eos # (Auto) 1.1 H (0.0-0.7) K/uL Baso # (Auto) 0.1 (0.0-0.1) K/uL Nucleated RBC % 0.0 /100WBC Nucleated RBCs # 0 K/uL Sodium 140 (136-145) mmol/L Potassium 4.0 (3.5-5.1) mmol/L Chloride 103 (98-107) mmol/L Carbon Dioxide 24.4 (21.0-32.0) mmol/L BUN 9 (7.0-18.0) mg/dL Creatinine 1.0 (0.6-1.0) mg/dL Est Cr Clr Drug Dosing 62.64 mL/min Estimated GFR (MDRD) > 60.0 ml/min Glucose 114 H (74-106) mg/dL Calcium 9.1 (8.5-10.1) mg/dL Total Bilirubin 0.2 (0.2-1.0) mg/dL AST 24 (15-37) U/L ALT 37 (14-63) U/L Alkaline Phosphatase 100 (46-116) U/L B-Natriuretic Peptide < 15 (<100) PG/ML Total Protein 7.6 (6.4-8.2) g/dL Albumin 3.2 L (3.4-5.0) g/dL Globulin 4.4 H (2.0-3.5) g/dL Albumin/Globulin Ratio 0.7 L (1.3-2.8) Meds: Medications Generic Name Dose Route Start Last Admin Trade Name Freq PRN Reason Stop Dose Admin Sodium Chloride 10 ml 10/22/17 13:45 Saline Flush FLUSH ASDIRECTED PRN Keep Vein Open Sodium Chloride 2.5 ml 10/22/17 13:45 Saline Flush FLUSH ASDIRECTED PRN Keep Vein Open Discontinued Medications Generic Name Dose Route Start Last Admin Trade Name Freq PRN Reason Stop Dose Admin Albuterol 10 mg 10/22/17 13:16 Proventil Reagan Soln NEB 10/22/17 13:17 ONETIME ONE Albuterol 2.5 mg 10/22/17 13:45 10/22/17 14:10 Proventil Neb Soln NEB 10/22/17 13:46 2.5 mg ONETIME ONE Administration Albuterol/Ipratropium Confirm 10/22/17 13:12 10/22/17 13:15 Duoneb 3.0-0.5 Mg/3 Ml Administered 10/22/17 13:13 3 ml Dose Administration 3 ml .ROUTE .STK-MED ONE Albuterol/Ipratropium 3 ml 10/22/17 13:17 10/22/17 13:22 Duoneb 3.0-0.5 Mg/3 Ml NEB 10/22/17 13:18 3 ml ONETIME ONE Administration Guaifenesin/Codeine Phosphate 5 ml 10/22/17 15:56 10/22/17 16:10 Robitussin Ac PO 10/22/17 15:57 5 ml ONETIME ONE Administration Magnesium Sulfate 2 gm/ Premix 50 mls @ 25 mls/hr 10/22/17 13:45 10/22/17 14: 11 IV 10/22/17 15:44 25 mls/hr ONETIME ONE Administration Sodium Chloride 1,000 mls @ 999 mls/hr 10/22/17 13:45 10/22/17 14:11 Normal Saline IV 10/22/17 14:45 300 mls/hr .Bolus ONE Infusion Prednisone 60 mg 10/22/17 13:18 10/22/17 13:29 Prednisone PO 10/22/17 13:19 60 mg ONETIME ONE Administration Departure - Departure Time of Disposition: 16:57 Disposition: Home, Self-Care 01 Condition: Good Clinical Impression: Chronic bronchitis Qualifiers: Chronic bronchitis type: unspecified Qualified Code(s): J42 - Unspecified chronic bronchitis - Discharge Information Prescriptions: Albuterol/Ipratropium [Combivent Respimat] 4 gm IH Q4HR PRN #1 inhaler PRN Reason: Shortness Of Breath Benzonatate [Tessalon Perle] 100 mg PO TID PRN #20 capsule PRN Reason: Cough methylPREDNISolone [Medrol] 4 mg PO ASDIRECTED #1 dosepk methylPREDNISolone [Medrol] 4 mg PO ASDIRECTED #1 tab.ds.pk Referrals: PCP,None [Primary Care Provider] - Forms: ED Department Discharge Additional Instructions: The following information is given to patients seen in the emergency department who are being discharged to home. This information is to outline your options for follow-up care. We provide all patients seen in our emergency department with a follow-up referral. The need for follow-up, as well as the timing and circumstances, are variable depending upon the specifics of your emergency department visit. If you don't have a primary care physician on staff, we will provide you with a referral. We always advise you to contact your personal physician following an emergency department visit to inform them of the circumstance of the visit and for follow-up with them and/or the need for any referrals to a consulting specialist. The emergency department will also refer you to a specialist when appropriate. This referral assures that you have the opportunity for follow-up care with a specialist. All of these measure are taken in an effort to provide you with optimal care, which includes your follow-up. Under all circumstances we always encourage you to contact your private physician who remains a resource for coordinating your care. When calling for follow-up care, please make the office aware that this follow-up is from your recent emergency room visit. If for any reason you are refused follow-up, please contact the [facility] Emergency Department at and asked to speak to the emergency department charge nurse. Use Tessalon, Medrol Dosepak, Combivent inhaler as directed follow-up with primary care physician return if symptoms worsen [facility] [address] [place] [id number] - My Orders Last 24 Hours: My Active Orders 10/22/17 13:16 RT Aerosol Therapy [RC] ASDIRECTED 10/22/17 13:17 RT Aerosol Therapy [RC] ASDIRECTED 10/22/17 13:45 RT Aerosol Therapy [RC] ASDIRECTED Sodium Chloride 0.9% [Saline Flush] 10 ml FLUSH ASDIRECTED PRN Sodium Chloride 0.9% [Saline Flush] 2.5 ml FLUSH ASDIRECTED PRN Saline Lock Insert [OM.PC] Stat - Assessment/Plan Last 24 Hours: My Active Orders 10/22/17 13:16 RT Aerosol Therapy [RC] ASDIRECTED 10/22/17 13:17 RT Aerosol Therapy [RC] ASDIRECTED 10/22/17 13:45 RT Aerosol Therapy [RC] ASDIRECTED Sodium Chloride 0.9% [Saline Flush] 10 ml FLUSH ASDIRECTED PRN Sodium Chloride 0.9% [Saline Flush] 2.5 ml FLUSH ASDIRECTED PRN Saline Lock Insert [OM.PC] Stat
[2017-10-22 15:43] LABS: CHLORIDE,CL 103 mmol/L (98-107); SODIUM,NA 140 mmol/L (136-145)
[2017-10-22] MEDS ORDERED: Codeine/guaiFENesin 100-10 MG/5 ML Syrup 5 ML Cup PO ONE (15:56)
[2017-10-22 17:13] VITALS: BP 115/79
== END 2017-10-22 17:05 | disposition home or self-care (01) ==
LOC: MW.ED 12:39
DX: J20.9 Acute bronchitis, unspecified (principal); J42 Unspecified chronic bronchitis; Z91.040 Latex allergy status; Z88.0 Allergy status to penicillin; Z79.899 Other long term (current) drug therapy
CPT/HCPCS: 36415; 71046; 80053; 83880; 85025; 94640; 96361; 96365; 96366; 99285; A9270; J3475; J7040; 99283

== ENCOUNTER 2017-11-21 21:54 | Emergency (ER) | payer SELFPAY ==
[2017-11-21] MEDS ORDERED: Sodium Chloride 0.9% 2.5 ML Syringe FLUSH PRN (22:07)
[2017-11-21] MEDS ORDERED: Nitroglycerin 0.4 MG Tab.SL SL ONE (22:07)
[2017-11-21] MEDS ORDERED: LORazepam 2 MG/ML SDV IVPUSH ONE (22:07)
[2017-11-21] MEDS ORDERED: Sodium Chloride 0.9% 10 ML Syringe FLUSH PRN (22:07)
[2017-11-21] MEDS ORDERED: Aspirin 81 MG Tab.Chew PO ONE (22:10)
--- NOTE | 2017-11-21 22:10 | EDM.PDOC ---
ED HPI GENERAL MEDICAL PROBLEM - General Chief Complaint: Chest Pain Stated Complaint: CHEST PAIN /NUMBNESS FACE Time Seen by Provider: 11/21/17 21:55 - History of Present Illness INITIAL COMMENTS - FREE TEXT/NARRATIVE: HISTORY AND PHYSICAL: History of present illness: The patient is a 42-year-old female who follows in our clinic and has a history of asthma and rheumatoid arthritis and presents with sudden onset of numbness and tingling in her right for head and bilateral upper and lower lips that started while she was at work doing normal activities 30 minutes ago. She says the numbness and tingling was not her entire face and she had no weakness headache dizziness or lightheadedness. She sat down to rest and then she started feeling chest heaviness and felt that her her heart was going fast. She was not short of breath she didn't have any abdominal pain vomiting or diarrhea and earlier today she was having a normal day without any systemic complaints. The patient did not notice any numbness or tingling in her extremities and she had no weakness in her extremities. Patient was able to ambulate and presents for evaluation. The patient tells me that she does feel a little tingling and numbness to the left side of her forehead but is mostly on her right but it is bilateral upper and lower lips. She doesn't feel like she is having trouble thinking or speaking and has no issues with swallowing.. Patient has no neck or back pain. Patient states she had a total hysterectomy. The patient has no social history and no primary cardiac history and she has no family history of cardiac disease. Review of systems: As per history of present illness and below otherwise all systems reviewed and negative. Past medical history: As per history of present illness and as reviewed below otherwise noncontributory. Surgical history: As per history of present illness and as reviewed below otherwise noncontributory. Social history: No reported history of drug or alcohol abuse. Family history: As per history of present illness and as reviewed below otherwise noncontributory. Physical exam: General: Well-developed well-nourished female who is nontoxic and speaking clearly and easily in the ED but is tearful on my evaluation. Vital signs were noted by me. Seems slightly anxious. HEENT: Atraumatic, normocephalic, pupils reactive, negative for conjunctival pallor or scleral icterus, mucous membranes moist, throat clear, neck supple, nontender, trachea midline. There is no evidence of any facial swelling Lungs: Clear to auscultation, breath sounds equal bilaterally, chest nontender. Heart: S1S2, regular rhythm and tachycardic rate on my evaluation without any murmurs Abdomen: Soft, nondistended, nontender. Negative for masses or hepatosplenomegaly. NABS Pelvis: Stable nontender. Genitourinary: Deferred. Rectal: Deferred. Extremities: Atraumatic, negative for cords or calf pain. Neurovascular unremarkable. No pedal edema or leg asymmetry Neuro: Awake, alert, oriented. Cranial nerves II through XII unremarkable. Cerebellum unremarkable. Motor and sensory unremarkable throughout. The patient says that she does feel a slight difference in sensation in her right forehead compared to her left but not in her cheeks or neck. Exam nonfocal. Her is no drift in any extremities and the patient has full range of motion without defects or deficits. On smile eyebrow raise and all motor testing of the face there are no deficits or lateralizing signs Diagnostics: EKG CT scan of the head chest x-ray CBC CMP troponin TSH UA Therapeutics: IV O2 monitor IV fluids Ativan aspirin nitroglycerin NIHSS per RN = 0 I discussed all testing results with patient and family at bedside she says she feels significantly improved. Her heart rate is no longer tachycardic and she is no longer tearful. The patient states that her grandmother today and she did not realize that this has affected her as deeply as it has. I discussed with her observation admission versus follow-up as an outpatient and she would choose the latter. She was offered admission and does decline at this time. I will give her a small prescription for Ativan to help her with these stressors that she is undergoing as she feels that this is the trigger for her symptoms this evening. I've advised close follow-up in the clinic with the nurse practitioner that she sees, pushing hydration, avoiding caffeinated products and reasons to return to the ED Impression: Episode of nonspecific paresthesias, atypical chest pain and tachycardia improved Definitive disposition and diagnosis as appropriate pending reevaluation and review of above. chest Pain Score (Numeric/FACES): 5 - Related Data Allergies Allergy/AdvReac Type Severity Reaction Status Date / Time latex Allergy Airway Verified 10/22/17 13:05 Tightness Penicillins Allergy Other Verified 10/22/17 13:05 Home Meds: Home Meds Albuterol Sulfate [Proair Hfa] 8.5 gm IH ASDIRECTED 07/22/16 [History] Methotrexate 2.5 mg PO Q7D 10/13/17 [History] Albuterol/Ipratropium [DuoNeb 3.0-0.5 MG/3 ML] 3 ml .XX Q4HR PRN #20 neb [Rx] traZODone 0 mg PO BEDTIME 11/21/17 [History] Past Medical History HEENT History: Reports: None Cardiovascular History: Reports: None Respiratory History: Reports: Asthma Gastrointestinal History: Reports: GERD Genitourinary History: Reports: None [employer] History: Reports: Other OB/BYN History: total hysterectomy 2012 Musculoskeletal History: Reports: None Neurological History: Reports: Other (See Below) Other Neuro History: psuedo tumors Psychiatric History: Reports: None Endocrine/Metabolic History: Reports: None Hematologic History: Reports: None Immunologic History: Reports: None Oncologic (Cancer) History: Reports: None Dermatologic History: Reports: None - Infectious Disease History Infectious Disease History: Reports: None - Past Surgical History GI Surgical History: Reports: Cholecystectomy Female Surgical History: Reports: Section, Tubal Ligation Social & Family History - Family History Family Medical History: Noncontributory Other Oncologic Family History: mother have lung cancer & father have tumor in the face - Tobacco Use Smoking Status *Q: Never Smoker Second Hand Smoke Exposure: No - Caffeine Use Caffeine Use: Reports: Coffee, Energy Drinks, Soda, Tea - Recreational Drug Use Recreational Drug Use: No ED ROS GENERAL - Review of Systems Review Of Systems: ROS reveals no pertinent complaints other than HPI. ED EXAM, GENERAL - Physical Exam Exam: See Below (See dictation) Course - Vital Signs Last Recorded V/S: Last Vital Signs Temp 36.6 C 11/21/17 22:00 Pulse 97 11/21/17 22:59 Resp 16 11/21/17 22:59 BP 133/78 11/21/17 22:59 Pulse Ox 97 11/21/17 22:59 - Orders/Labs/Meds Orders: Active Orders 24 hr Category Date Time Status Cardiac Monitoring [RC] . DIRECTED Care 11/21/17 22:06 Active EKG Documentation Completion [RC] STAT Care 11/21/17 22:06 Active Oxygen Therapy, ED [RC] ASDIRECTED Care 11/21/17 22:06 Active Pulse Oximetry [RC] ASDIRECTED Care 11/21/17 22:06 Active Chest 1V Frontal [CR] Stat Exams 11/21/17 22:07 Taken Head wo Cont [CT] Stat Exams 11/21/17 22:07 Taken UA W/MICROSCOPIC [URIN] Stat Lab 11/21/17 22:35 Ordered Sodium Chloride 0.9% [Normal Saline] 500 ml Med 11/21/17 22:15 Active IV STAT Sodium Chloride 0.9% [Saline Flush] Med 11/21/17 22:07 Active 10 ml FLUSH ASDIRECTED PRN Sodium Chloride 0.9% [Saline Flush] Med 11/21/17 22:07 Active 2.5 ml FLUSH ASDIRECTED PRN Saline Lock Insert [OM.PC] Stat Oth 11/21/17 22:06 Ordered Medication Orders Sodium Chloride (Normal Saline) 500 mls @ 999 mls/hr IV STAT KERRY Last Admin: 11/21/17 22:59 Dose: 999 mls/hr Sodium Chloride (Saline Flush) 10 ml FLUSH ASDIRECTED PRN PRN Reason: Keep Vein Open Last Admin: 11/21/17 22:17 Dose: 10 ml Sodium Chloride (Saline Flush) 2.5 ml FLUSH ASDIRECTED PRN PRN Reason: Keep Vein Open Last Admin: 11/21/17 22:17 Dose: 2.5 ml Labs: Laboratory Tests 11/21/17 11/21/17 11/21/17 Range/Units 22:03 22:03 22:35 WBC 8.72 (4.0-11.0) K/uL RBC 4.54 (4.30-5.90) M/uL Hgb 12.9 (12.0-16.0) g/dL Hct 39.3 (36.0-46.0) % MCV 86.6 (80.0-98.0) fL MCH 28.4 (27.0-32.0) pg MCHC 32.8 (31.0-37.0) g/dL RDW Std Deviation 46.1 (28.0-62.0) fl RDW Coeff of Cecilia 15 (11.0-15.0) % Plt Count 321 (150-400) K/uL MPV 9.80 (7.40-12.00) fL Neut % (Auto) 51.8 (48.0-80.0) % Lymph % (Auto) 36.2 (16.0-40.0) % [place] % (Auto) 6.8 (0.0-15.0) % Eos % (Auto) 4.6 (0.0-7.0) % Baso % (Auto) 0.6 (0.0-1.5) % Neut # (Auto) 4.5 (1.4-5.7) K/uL Lymph # (Auto) 3.2 H (0.6-2.4) K/uL [place] # (Auto) 0.6 (0.0-0.8) K/uL Eos # (Auto) 0.4 (0.0-0.7) K/uL Baso # (Auto) 0.1 (0.0-0.1) K/uL Nucleated RBC % 0.0 /100WBC Nucleated RBCs # 0 K/uL Sodium 139 (136-145) mmol/L Potassium 3.6 (3.5-5.1) mmol/L Chloride 103 (98-107) mmol/L Carbon Dioxide 28.7 (21.0-32.0) mmol/L BUN 14 (7.0-18.0) mg/dL Creatinine 1.0 (0.6-1.0) mg/dL Est Cr Clr Drug Dosing TNP Estimated GFR (MDRD) > 60.0 ml/min Glucose 145 H (74-106) mg/dL Calcium 9.1 (8.5-10.1) mg/dL Total Bilirubin 0.3 (0.2-1.0) mg/dL AST 74 H (15-37) IU/L ALT 89 H (14-63) IU/L Alkaline Phosphatase 114 (46-116) U/L Troponin I < 0.050 (0.000-0.056) ng/mL Total Protein 7.3 (6.4-8.2) g/dL Albumin 3.5 (3.4-5.0) g/dL Globulin 3.8 H (2.0-3.5) g/dL Albumin/Globulin Ratio 0.9 L (1.3-2.8) TSH 3rd Generation 1.39 (0.36-3.74) uIU/mL Urine Color YELLOW Urine Appearance CLEAR Urine pH 6.0 (5.0-8.0) Ur Specific [place] 1.025 (1.001-1.035) Urine Protein NEGATIVE (NEGATIVE) mg/dL Urine Glucose (UA) NEGATIVE (NEGATIVE) mg/dL Urine Ketones NEGATIVE (NEGATIVE) mg/dL Urine Occult Blood TRACE-LYSED (NEGATIVE) Urine Nitrite NEGATIVE (NEGATIVE) Urine Bilirubin NEGATIVE (NEGATIVE) Urine Urobilinogen 0.2 (<2.0) EU/dL Ur Leukocyte Esterase NEGATIVE (NEGATIVE) Urine RBC 0-2 (0-2/HPF) Urine WBC 0-2 (0-5/HPF) Ur Epithelial Cells FEW (NONE-FEW) Urine Bacteria FEW (NEGATIVE) Meds: Medications Generic Name Dose Route Start Last Admin Trade Name Javier PRN Reason Stop Dose Admin Sodium Chloride 500 mls @ 999 mls/hr 11/21/17 22:15 11/21/17 22:59 Normal Saline IV 999 mls/hr STAT KERRY Administration Sodium Chloride 10 ml 11/21/17 22:07 11/21/17 22:17 Saline Flush FLUSH 10 ml ASDIRECTED PRN Administration Keep Vein Open Sodium Chloride 2.5 ml 11/21/17 22:07 11/21/17 22:17 Saline Flush FLUSH 2.5 ml ASDIRECTED PRN Administration Keep Vein Open Discontinued Medications Generic Name Dose Route Start Last Admin Trade Name Javier PRN Reason Stop Dose Admin Aspirin 324 mg 11/21/17 22:10 11/21/17 22:15 Aspirin PO 11/21/17 22:11 324 mg ONETIME ONE Administration Lorazepam 0.5 mg 11/21/17 22:07 11/21/17 22:17 Ativan IVPUSH 11/21/17 22:08 0.25 ml ONETIME ONE Administration Lorazepam 1 mg 11/21/17 23:24 Ativan PO 11/21/17 23:25 ONETIME ONE Nitroglycerin 0.4 mg 11/21/17 22:07 11/21/17 22:16 Nitrostat SL 11/21/17 22:08 0.4 mg ONETIME ONE Administration Departure - Departure Time of Disposition: 23:27 Disposition: Home, Self-Care 01 Condition: Good Clinical Impression: Paresthesia, Atypical chest pain, Tachycardia - Discharge Information Referrals: PCP,None [Primary Care Provider] - Forms: ED Department Discharge Additional Instructions: The following information is given to patients seen in the emergency department who are being discharged to home. This information is to outline your options for follow-up care. We provide all patients seen in our emergency department with a follow-up referral. The need for follow-up, as well as the timing and circumstances, are variable depending upon the specifics of your emergency department visit. If you don't have a primary care physician on staff, we will provide you with a referral. We always advise you to contact your personal physician following an emergency department visit to inform them of the circumstance of the visit and for follow-up with them and/or the need for any referrals to a consulting specialist. The emergency department will also refer you to a specialist when appropriate. This referral assures that you have the opportunity for followup care with a specialist. All of these measure are taken in an effort to provide you with optimal care, which includes your followup. Under all circumstances we always encourage you to contact your private physician who remains a resource for coordinating your care. When calling for followup care, please make the office aware that this follow-up is from your recent emergency room visit. If for any reason you are refused follow-up, please contact the [facility] emergency department at and ask to speak to the emergency department charge nurse. [facility] Primary care- [place] [address] Try to avoid caffeinated products and push more hydration and use the Ativan you had been prescribed as needed to take only when you're at home. Please call and follow-up with your provider in the clinic early next week and return to ER as needed and as discussed - My Orders Last 24 Hours: My Active Orders 11/21/17 22:06 Cardiac Monitoring [RC] . DIRECTED EKG Documentation Completion [RC] STAT Oxygen Therapy, ED [RC] ASDIRECTED Pulse Oximetry [RC] ASDIRECTED Saline Lock Insert [OM.PC] Stat 11/21/17 22:07 Chest 1V Frontal [CR] Stat Head wo Cont [CT] Stat Sodium Chloride 0.9% [Saline Flush] 10 ml FLUSH ASDIRECTED PRN Sodium Chloride 0.9% [Saline Flush] 2.5 ml FLUSH ASDIRECTED PRN 11/21/17 22:15 Sodium Chloride 0.9% [Normal Saline] 500 ml IV STAT 11/21/17 22:35 UA W/MICROSCOPIC [URIN] Stat - Assessment/Plan Last 24 Hours: My Active Orders 11/21/17 22:06 Cardiac Monitoring [RC] . DIRECTED EKG Documentation Completion [RC] STAT Oxygen Therapy, ED [RC] ASDIRECTED Pulse Oximetry [RC] ASDIRECTED Saline Lock Insert [OM.PC] Stat 11/21/17 22:07 Chest 1V Frontal [CR] Stat Head wo Cont [CT] Stat Sodium Chloride 0.9% [Saline Flush] 10 ml FLUSH ASDIRECTED PRN Sodium Chloride 0.9% [Saline Flush] 2.5 ml FLUSH ASDIRECTED PRN 11/21/17 22:15 Sodium Chloride 0.9% [Normal Saline] 500 ml IV STAT 11/21/17 22:35 UA W/MICROSCOPIC [URIN] Stat
[2017-11-21] MEDS ORDERED: Sodium Chloride 0.9% 500 ML IV SCH (22:15)
[2017-11-21 22:39] LABS: CHLORIDE,CL 103 mmol/L (98-107); SODIUM,NA 139 mmol/L (136-145)
[2017-11-21] MEDS ORDERED: LORazepam 1 MG Tab PO ONE (23:24)
[2017-11-21 23:51] VITALS: BP 127/86
--- NOTE | 2017-11-24 09:47 | CT ---
EXAM DATE: 11/21/17 PATIENT'S AGE: 42 Patient: [address] Facility: [place], [place] Site . Site : 1975 Study: CT Head [id number]/[id number] 10:30:37 PM Ordering Physician: Princess Tolentino Final Report: INDICATION: Chest pain. Left-sided facial numbness for 3 hours. 42-year-old female. TECHNIQUE: CT head without i.v. contrast. COMPARISON: None FINDINGS: CSF spaces: Within normal limits for age. Brain parenchyma: The brain parenchyma is normal in appearance with preservation of the andersen-white differentiation. No sign of mass, hemorrhage, or midline shift seen. Skull base and calvarium: The visualized paranasal sinuses are well aerated. The mastoid air cells are clear. The visualized orbits are grossly unremarkable. No skull fractures are seen. IMPRESSION: 1. No evidence of acute infarction, intracranial hemorrhage, or mass effect seen. Dictated by Meek Carreon MD @ 11/21/2017 10:35:17 PM Dictated by: Meek Carreon MD @ 11/21/2017 22:35:24 (Electronic Signature) Report Signed by Proxy. BAY
--- NOTE | 2017-11-24 09:47 | CR ---
EXAM DATE: 11/21/17 PATIENT'S AGE: 42 Patient: [address] Facility: [place], [place] Site . Site : 1975 Study: XRay Chest [id number]/6/[id number] 10:33:00 PM Ordering Physician: Princess Tolentino Final Report: INDICATION: CP and L side facial numbness x3hrNo prior hx TECHNIQUE: Chest 1 view COMPARISON: October 22, 2017 FINDINGS: Cardiovascular and mediastinum: Heart size and vasculature are normal in caliber and appearance. Mediastinum is within normal limits. Lungs and pleural space: No focal consolidation. No sign of pleural effusion. No pneumothorax. Bones and soft tissues: No significant findings. IMPRESSION: No acute cardiopulmonary disease. Dictated by Caio Pineda MD @ 11/21/2017 10:38:39 PM Dictated by: Caio Pineda MD @ 11/21/2017 22:38:44 (Electronic Signature) Report Signed by Proxy. ST[facility]PT[facility] HOSPITALAngie
== END 2017-11-21 23:38 | disposition home or self-care (01) ==
LOC: MW.ED 21:54
DX: R07.89 Other chest pain (principal); R00.0 Tachycardia, unspecified; R20.2 Paresthesia of skin; Z90.710 Acquired absence of both cervix and uterus; Z91.040 Latex allergy status; Z88.0 Allergy status to penicillin; Z90.49 Acquired absence of other specified parts of digestive tract
CPT/HCPCS: 36415; 70450; 71045; 80053; 81001; 84443; 84484; 85025; 93005; 96374; 99285; A9270; J2060; J7040

== ENCOUNTER 2017-12-07 23:34 | Emergency (ER) | payer SELFPAY ==
[2017-12-07] MEDS ORDERED: methylPREDNISolone Sodium Succinate 125 MG/2 ML SDV IVPUSH ONE (23:37)
[2017-12-07] MEDS ORDERED: Sodium Chloride 0.9% 1,000 ML IV ONE (23:38)
[2017-12-07] MEDS ORDERED: LORazepam 2 MG/ML SDV IVPUSH ONE (23:44)
[2017-12-07] MEDS ORDERED: Albuterol/Ipratropium 3.0-0.5 MG/3 ML Neb Soln NEB ONE (23:44)
[2017-12-08 00:05] LABS: CHLORIDE,CL 106 mmol/L (98-107); SODIUM,NA 142 mmol/L (136-145)
--- NOTE | 2017-12-08 00:54 | EDM.PDOC ---
ED HPI GENERAL MEDICAL PROBLEM - General Chief Complaint: Respiratory Problem Stated Complaint: HARD TIME BREATHING Time Seen by Provider: 12/08/17 00:51 Source of Information: Reports: Patient - History of Present Illness INITIAL COMMENTS - FREE TEXT/NARRATIVE: HISTORY AND PHYSICAL: History of present illness: [Patient presents with audible wheeze and shortness of breath She has known uncontrolled asthma but triggers by going to her daughter's elsewhere her daughter has multiple pets dogs and cats which trigger her asthma she was over to her daughter's house watching a movie tonight and her asthma triggered She is provided a DuoNeb and Solu-Medrol with resolution of symptoms patient has breathing normally setting up to 97% on room air in no distress no current fever nausea vomiting diarrhea constipation chest pain shortness breath headache dizziness palpitation no bowel or urine symptoms Patient is also out of Ventolin, she had times uses her daughter's nebulizer compressor as her daughter does not require the use of the compressor very often provide some duo nebs and she will be able to use them with the daughter' s compressor as well as a prednisone taper ] Review of systems: As per history of present illness and below otherwise all systems reviewed and negative. Past medical history: As per history of present illness and as reviewed below otherwise noncontributory. Surgical history: As per history of present illness and as reviewed below otherwise noncontributory. Social history: No reported history of drug or alcohol abuse. Family history: As per history of present illness and as reviewed below otherwise noncontributory. Physical exam: HEENT: Atraumatic, normocephalic, pupils reactive, negative for conjunctival pallor or scleral icterus, mucous membranes moist, throat clear, neck supple, nontender, trachea midline. Lungs: Clear to auscultation, breath sounds equal bilaterally, chest nontender. Posttreatment Heart: S1S2, regular, negative for clicks, rubs, or JVD. Abdomen: Soft, nondistended, nontender. Negative for masses or hepatosplenomegaly. Negative for costovertebral tenderness. Pelvis: Stable nontender. Genitourinary: Deferred. Rectal: Deferred. Extremities: Atraumatic, negative for cords or calf pain. Neurovascular unremarkable. Neuro: Awake, alert, oriented. Cranial nerves II through XII unremarkable. Cerebellum unremarkable. Motor and sensory unremarkable throughout. Exam nonfocal. Diagnostics: [EDC CMP UA Chest 1 view ] Therapeutics: [ a Medrol 125 mg IV DuoNeb Prednisone to burst 20 mg by mouth daily 5 days DuoNeb one box approximately 40 count 4 times a day Ventolin HFA ] Impression: [ asthma exacerbation resolved ] Definitive disposition and diagnosis as appropriate pending reevaluation and review of above. - Related Data Allergies Allergy/AdvReac Type Severity Reaction Status Date / Time latex Allergy Airway Verified 12/07/17 23:45 Tightness Penicillins Allergy Other Verified 12/07/17 23:45 Home Meds: Home Meds Albuterol Sulfate [Proair Hfa] 8.5 gm IH ASDIRECTED PRN 07/22/16 [History] traZODone 0 mg PO BEDTIME 11/21/17 [History] Albuterol/Ipratropium [DuoNeb 3.0-0.5 MG/3 ML] 3 ml INH Q4HR PRN 12/07/17 [ History] Past Medical History HEENT History: Reports: None Cardiovascular History: Reports: None Respiratory History: Reports: Asthma Gastrointestinal History: Reports: GERD Genitourinary History: Reports: None 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 OB/BYN History: total hysterectomy 2012 Musculoskeletal History: Reports: None Neurological History: Reports: Other (See Below) Other Neuro History: psuedo tumors Psychiatric History: Reports: None Endocrine/Metabolic History: Reports: None Hematologic History: Reports: None Immunologic History: Reports: None Oncologic (Cancer) History: Reports: None Dermatologic History: Reports: None - Infectious Disease History Infectious Disease History: Reports: None - Past Surgical History GI Surgical History: Reports: Cholecystectomy Female Surgical History: Reports: Section, Tubal Ligation Social & Family History - Family History Family Medical History: Noncontributory Other Oncologic Family History: mother have lung cancer & father have tumor in the face - Tobacco Use Smoking Status *Q: Never Smoker Second Hand Smoke Exposure: No - Caffeine Use Caffeine Use: Reports: Coffee, Energy Drinks, Soda, Tea - Recreational Drug Use Recreational Drug Use: No ED ROS GENERAL - Review of Systems Review Of Systems: ROS reveals no pertinent complaints other than HPI. ED EXAM, GENERAL - Physical Exam Exam: See Below Course - Vital Signs Last Recorded V/S: Last Vital Signs Temp 98 F 12/07/17 23:34 Pulse 121 H 04/22/18 23:34 Resp 28 H 12/07/17 23:34 BP 129/57 L 12/07/17 23:34 Pulse Ox 95 12/07/17 23:34 - Orders/Labs/Meds Orders: Active Orders 24 hr Category Date Time Status RT Aerosol Therapy [RC] ASDIRECTED Care 12/07/17 23:44 Active Chest 1V Frontal [CR] Stat Exams 12/07/17 23:44 Taken UA W/MICROSCOPIC [URIN] Stat Lab 12/07/17 23:44 Ordered Labs: Laboratory Tests 12/07/17 12/07/17 Range/Units 23:40 23:40 WBC 10.44 (4.0-11.0) K/uL RBC 4.46 (4.30-5.90) M/uL Hgb 12.6 (12.0-16.0) g/dL Hct 39.3 (36.0-46.0) % MCV 88.1 (80.0-98.0) fL MCH 28.3 (27.0-32.0) pg MCHC 32.1 (31.0-37.0) g/dL RDW Std Deviation 48.6 (28.0-62.0) fl RDW Coeff of Cecilia 15 (11.0-15.0) % Plt Count 253 (150-400) K/uL MPV 9.70 (7.40-12.00) fL Neut % (Auto) 51.3 (48.0-80.0) % Lymph % (Auto) 36.1 (16.0-40.0) % [place] % (Auto) 5.6 (0.0-15.0) % Eos % (Auto) 6.6 (0.0-7.0) % Baso % (Auto) 0.4 (0.0-1.5) % Neut # (Auto) 5.4 (1.4-5.7) K/uL Lymph # (Auto) 3.8 H (0.6-2.4) K/uL [place] # (Auto) 0.6 (0.0-0.8) K/uL Eos # (Auto) 0.7 (0.0-0.7) K/uL Baso # (Auto) 0.0 (0.0-0.1) K/uL Nucleated RBC % 0.0 /100WBC Nucleated RBCs # 0 K/uL Sodium 142 (136-145) mmol/L Potassium 3.8 (3.5-5.1) mmol/L Chloride 106 (98-107) mmol/L Carbon Dioxide 26.8 (21.0-32.0) mmol/L BUN 11 (7.0-18.0) mg/dL Creatinine 1.1 H (0.6-1.0) mg/dL Est Cr Clr Drug Dosing TNP Estimated GFR (MDRD) 54.2 ml/min Glucose 138 H (74-106) mg/dL Calcium 9.5 (8.5-10.1) mg/dL Total Bilirubin 0.2 (0.2-1.0) mg/dL AST 34 (15-37) IU/L ALT 45 (14-63) IU/L Alkaline Phosphatase 84 (46-116) U/L Total Protein 7.6 (6.4-8.2) g/dL Albumin 3.6 (3.4-5.0) g/dL Globulin 4.0 H (2.0-3.5) g/dL Albumin/Globulin Ratio 0.9 L (1.3-2.8) Meds: Medications Discontinued Medications Generic Name Dose Route Start Last Admin Trade Name Freq PRN Reason Stop Dose Admin Albuterol/Ipratropium 3 ml 12/07/17 23:44 12/07/17 23:48 Duoneb 3.0-0.5 Mg/3 Ml NEB 12/07/17 23:45 3 ml ONETIME ONE Administration Sodium Chloride 1,000 mls @ 999 mls/hr 12/07/17 23:38 12/07/17 23:43 Normal Saline IV 12/08/17 00:38 999 mls/hr .Bolus ONE Administration Lorazepam 1 mg 12/07/17 23:44 12/07/17 23:49 Ativan IVPUSH 12/07/17 23:45 1 mg ONETIME ONE Administration Methylprednisolone Sodium Succinate 125 mg 12/07/17 23:37 12/07/17 23:43 Solu-Medrol IVPUSH 12/07/17 23:38 125 mg ONETIME ONE Administration Departure - Departure Time of Disposition: 00:53 Disposition: Home, Self-Care 01 Condition: Good Clinical Impression: Asthma exacerbation - Discharge Information Referrals: PCP,Unknown [Primary Care Provider] - Additional Instructions: The following information is given to patients seen in the emergency department who are being discharged to home. This information is to outline your options for follow-up care. We provide all patients seen in our emergency department with a follow-up referral. The need for follow-up, as well as the timing and circumstances, are variable depending upon the specifics of your emergency department visit. If you don't have a primary care physician on staff, we will provide you with a referral. We always advise you to contact your personal physician following an emergency department visit to inform them of the circumstance of the visit and for follow-up with them and/or the need for any referrals to a consulting specialist. The emergency department will also refer you to a specialist when appropriate. This referral assures that you have the opportunity for follow-up care with a specialist. All of these measure are taken in an effort to provide you with optimal care, which includes your follow-up. Under all circumstances we always encourage you to contact your private physician who remains a resource for coordinating your care. When calling for follow-up care, please make the office aware that this follow-up is from your recent emergency room visit. If for any reason you are refused follow-up, please contact the [facility] emergency department at and asked to speak to the emergency department charge nurse. . - My Orders Last 24 Hours: My Active Orders 12/07/17 23:44 RT Aerosol Therapy [RC] ASDIRECTED Chest 1V Frontal [CR] Stat UA W/MICROSCOPIC [URIN] Stat - Assessment/Plan Last 24 Hours: My Active Orders 12/07/17 23:44 RT Aerosol Therapy [RC] ASDIRECTED Chest 1V Frontal [CR] Stat UA W/MICROSCOPIC [URIN] Stat
[2017-12-08 01:23] VITALS: BP 123/59
--- NOTE | 2017-12-08 15:38 | CR ---
EXAM DATE: 12/07/17 PATIENT'S AGE: 42 Patient: [address] Facility: [place], [place] Site . Site : 1975 Study: XRay Chest [id number]/23/2018 12:25:02 AM Ordering Physician: Doctor Mays Final Report: INDICATION: sob TECHNIQUE: Chest 1 view. COMPARISON: 11/21/17 FINDINGS: Cardiovascular and mediastinum: Heart size and vasculature are normal in caliber and appearance. Mediastinum is within normal limits. Lungs and pleural space: Lungs are clear. No sign of infiltrate or mass. No sign of pleural effusion. No pneumothorax. Bones and soft tissues: No significant findings. IMPRESSION: Unremarkable chest. Dictated by: Grover Yang MD @ 12/08/2017 00:59:27 (Electronic Signature) Report Signed by Proxy. BAY
== END 2017-12-08 01:13 | disposition home or self-care (01) ==
LOC: MW.ED 23:34
DX: J45.901 Unspecified asthma with (acute) exacerbation (principal); Z88.0 Allergy status to penicillin; Z91.040 Latex allergy status
CPT/HCPCS: 36415; 71045; 80053; 85025; 94640; 96361; 96374; 96375; 99285; J2060; J2930; J7040

== ENCOUNTER 2018-01-02 22:57 | Emergency (ER) | payer SELFPAY ==
[2018-01-02] MEDS ORDERED: Sodium Chloride 0.9% 1,000 ML IV ONE (23:06)
[2018-01-02] MEDS ORDERED: Ondansetron 4 MG/2 ML SDV IVPUSH ONE (23:06)
[2018-01-02] MEDS ORDERED: Ketorolac 30 MG/ML SDV IVPUSH ONE (23:06)
[2018-01-03] MEDS ORDERED: Levofloxacin 500 MG Tab PO ONE (00:36)
--- NOTE | 2018-01-03 00:52 | EDM.PDOC ---
ED HPI GENERAL MEDICAL PROBLEM - General Chief Complaint: Genitourinary Problem Stated Complaint: BLOOD IN URINE/ABDOMINAL PAIN Time Seen by Provider: 01/03/18 00:50 Source of Information: Reports: Patient - History of Present Illness INITIAL COMMENTS - FREE TEXT/NARRATIVE: HISTORY AND PHYSICAL: History of present illness: Patient presents with hematuria and loose stools over the last 2 weeks she's been using Imodium daily now she has some upper abdominal pain she is concerned as she states it feels as if she is having discomfort associated with previous elevated liver enzymes She has no fever nausea vomiting chills sweats no chest pain shortness breath headache dizziness or palpitation she has had loose stools no blood or mucus in the stool urine has been having painful urination and hematuria [] Review of systems: As per history of present illness and below otherwise all systems reviewed and negative. Past medical history: As per history of present illness and as reviewed below otherwise noncontributory. Surgical history: As per history of present illness and as reviewed below otherwise noncontributory. Social history: No reported history of drug or alcohol abuse. Family history: As per history of present illness and as reviewed below otherwise noncontributory. Physical exam: HEENT: Atraumatic, normocephalic, pupils reactive, negative for conjunctival pallor or scleral icterus, mucous membranes moist, throat clear, neck supple, nontender, trachea midline. Lungs: Clear to auscultation, breath sounds equal bilaterally, chest nontender. Heart: S1S2, regular, negative for clicks, rubs, or JVD. Abdomen: Soft, nondistended, nontender. Negative for masses or hepatosplenomegaly. Negative for costovertebral tenderness. Pelvis: Stable nontender. Genitourinary: Deferred. Rectal: Deferred. Extremities: Atraumatic, negative for cords or calf pain. Neurovascular unremarkable. Neuro: Awake, alert, oriented. Cranial nerves II through XII unremarkable. Cerebellum unremarkable. Motor and sensory unremarkable throughout. Exam nonfocal. Diagnostics: [Abdomen flat and upright CBC CMP UA culture lipase ] Therapeutics: [ normal saline bolus Zofran Toradol 30 mg IV Levaquin 500 milligrams by mouth now ] Levaquin 500 by mouth daily #7 no refill Impression: [ UTI Gastroenteritis by history Patient was unable to provide a stool sample for testing ] Definitive disposition and diagnosis as appropriate pending reevaluation and review of above. middle abdomen Pain Score (Numeric/FACES): 8 - Related Data Allergies Allergy/AdvReac Type Severity Reaction Status Date / Time latex Allergy Airway Verified 01/02/18 23:10 Tightness Penicillins Allergy Other Verified 01/02/18 23:10 Home Meds: Home Meds Albuterol Sulfate [Proair Hfa] 8.5 gm IH ASDIRECTED PRN 07/22/16 [History] traZODone 150 mg PO BEDTIME 11/21/17 [History] Albuterol/Ipratropium [DuoNeb 3.0-0.5 MG/3 ML] 3 ml INH Q4HR PRN 12/07/17 [ History] Past Medical History HEENT History: Reports: None Cardiovascular History: Reports: None Respiratory History: Reports: Asthma Gastrointestinal History: Reports: GERD, Jaundice, Other (See Below) Other Gastrointestinal History: "liver failure" Genitourinary History: Reports: None 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 OB/BYN History: total hysterectomy 2012 Musculoskeletal History: Reports: None Neurological History: Reports: Other (See Below) Other Neuro History: psuedo tumor Psychiatric History: Reports: None Endocrine/Metabolic History: Reports: None Hematologic History: Reports: None Immunologic History: Reports: None Oncologic (Cancer) History: Reports: None Dermatologic History: Reports: None - Infectious Disease History Infectious Disease History: Reports: None - Past Surgical History GI Surgical History: Reports: Cholecystectomy Female Surgical History: Reports: Section, Hysterectomy, Tubal Ligation Social & Family History - Family History Family Medical History: Noncontributory Other Oncologic Family History: mother have lung cancer & father have tumor in the face - Tobacco Use Smoking Status *Q: Never Smoker - Caffeine Use Caffeine Use: Reports: Coffee, Energy Drinks, Soda, Tea - Recreational Drug Use Recreational Drug Use: No ED ROS GENERAL - Review of Systems Review Of Systems: ROS reveals no pertinent complaints other than HPI. ED EXAM, GENERAL - Physical Exam Exam: See Below Course - Vital Signs Last Recorded V/S: Last Vital Signs Temp 97.2 F 01/02/18 23:05 Pulse 89 01/02/18 23:05 Resp 12 01/02/18 23:05 BP 132/88 01/02/18 23:05 Pulse Ox 95 01/02/18 23:05 - Orders/Labs/Meds Orders: Active Orders 24 hr Category Date Time Status Abdomen 2V AP Flat Upright [CR] Stat Exams 01/02/18 23:54 Taken CULTURE URINE [RM] Stat Lab 01/02/18 23:14 Ordered UA W/MICROSCOPIC [URIN] Stat Lab 01/02/18 23:14 Ordered Labs: Laboratory Tests 01/02/18 01/02/18 01/02/18 Range/Units 23:14 23:18 23:18 WBC 10.68 (4.0-11.0) K/uL RBC 4.70 (4.30-5.90) M/uL Hgb 13.1 (12.0-16.0) g/dL Hct 40.4 (36.0-46.0) % MCV 86.0 (80.0-98.0) fL MCH 27.9 (27.0-32.0) pg MCHC 32.4 (31.0-37.0) g/dL RDW Std Deviation 43.5 (28.0-62.0) fl RDW Coeff of Cecilia 14 (11.0-15.0) % Plt Count 300 (150-400) K/uL MPV 10.10 (7.40-12.00) fL Neut % (Auto) 54.1 (48.0-80.0) % Lymph % (Auto) 35.4 (16.0-40.0) % [place] % (Auto) 6.2 (0.0-15.0) % Eos % (Auto) 3.7 (0.0-7.0) % Baso % (Auto) 0.6 (0.0-1.5) % Neut # (Auto) 5.8 H (1.4-5.7) K/uL Lymph # (Auto) 3.8 H (0.6-2.4) K/uL [place] # (Auto) 0.7 (0.0-0.8) K/uL Eos # (Auto) 0.4 (0.0-0.7) K/uL Baso # (Auto) 0.1 (0.0-0.1) K/uL Nucleated RBC % 0.0 /100WBC Nucleated RBCs # 0 K/uL Sodium 140 (136-145) mmol/L Potassium 4.0 (3.5-5.1) mmol/L Chloride 104 (98-107) mmol/L Carbon Dioxide 27.8 (21.0-32.0) mmol/L BUN 14 (7.0-18.0) mg/dL Creatinine 1.1 H (0.6-1.0) mg/dL Est Cr Clr Drug Dosing 56.94 mL/min Estimated GFR (MDRD) 54.2 ml/min Glucose 95 (74-106) mg/dL Calcium 9.5 (8.5-10.1) mg/dL Total Bilirubin 0.2 (0.2-1.0) mg/dL AST 22 (15-37) IU/L ALT 33 (14-63) IU/L Alkaline Phosphatase 96 (46-116) U/L Total Protein 7.5 (6.4-8.2) g/dL Albumin 3.6 (3.4-5.0) g/dL Globulin 3.9 H (2.0-3.5) g/dL Albumin/Globulin Ratio 0.9 L (1.3-2.8) Lipase 121 (73-393) U/L Urine Color ORANGE Urine Appearance HAZY Urine pH 7.0 (5.0-8.0) Ur Specific [place] <= 1.005 (1.001-1.035) Urine Protein 30 (NEGATIVE) mg/dL Urine Glucose (UA) 100 H (NEGATIVE) mg/dL Urine Ketones NEGATIVE (NEGATIVE) mg/dL Urine Occult Blood NEGATIVE (NEGATIVE) Urine Nitrite POSITIVE H (NEGATIVE) Urine Bilirubin SMALL H (NEGATIVE) Urine Ictotest POSITIVE Urine Urobilinogen 4.0 H (<2.0) EU/dL Ur Leukocyte Esterase TRACE (NEGATIVE) Urine RBC 1-2 (0-2/HPF) Urine WBC 0-2 (0-5/HPF) Ur Epithelial Cells FEW (NONE-FEW) Urine Bacteria FEW (NEGATIVE) Meds: Medications Discontinued Medications Generic Name Dose Route Start Last Admin Trade Name Freq PRN Reason Stop Dose Admin Sodium Chloride 1,000 mls @ 999 mls/hr 01/02/18 23:06 01/02/18 23:53 Normal Saline IV 01/03/18 00:06 999 mls/hr STAT ONE Administration Ketorolac Tromethamine 30 mg 01/02/18 23:06 01/02/18 23:53 Toradol IVPUSH 01/02/18 23:07 30 mg ONETIME ONE Administration Levofloxacin 500 mg 01/03/18 00:36 Levaquin PO 01/03/18 00:37 ONETIME ONE Ondansetron HCl 8 mg 01/02/18 23:06 01/02/18 23:53 Zofran IVPUSH 01/02/18 23:07 8 mg ONETIME ONE Administration Departure - Departure Time of Disposition: 00:51 Disposition: Home, Self-Care 01 Condition: Good Clinical Impression: UTI, Urinary tract infectious disease - Discharge Information Referrals: Meghna Mcallister, [employer] [Primary Care Provider] - Additional Instructions: The following information is given to patients seen in the emergency department who are being discharged to home. This information is to outline your options for follow-up care. We provide all patients seen in our emergency department with a follow-up referral. The need for follow-up, as well as the timing and circumstances, are variable depending upon the specifics of your emergency department visit. If you don't have a primary care physician on staff, we will provide you with a referral. We always advise you to contact your personal physician following an emergency department visit to inform them of the circumstance of the visit and for follow-up with them and/or the need for any referrals to a consulting specialist. The emergency department will also refer you to a specialist when appropriate. This referral assures that you have the opportunity for follow-up care with a specialist. All of these measure are taken in an effort to provide you with optimal care, which includes your follow-up. Under all circumstances we always encourage you to contact your private physician who remains a resource for coordinating your care. When calling for follow-up care, please make the office aware that this follow-up is from your recent emergency room visit. If for any reason you are refused follow-up, please contact the [facility] emergency department at and asked to speak to the emergency department charge nurse. - My Orders Last 24 Hours: My Active Orders 01/02/18 23:14 CULTURE URINE [RM] Stat UA W/MICROSCOPIC [URIN] Stat 01/02/18 23:54 Abdomen 2V AP Flat Upright [CR] Stat - Assessment/Plan Last 24 Hours: My Active Orders 01/02/18 23:14 CULTURE URINE [RM] Stat UA W/MICROSCOPIC [URIN] Stat 01/02/18 23:54 Abdomen 2V AP Flat Upright [CR] Stat
[2018-01-03 01:19] VITALS: BP 132/74
--- NOTE | 2018-01-05 10:08 | CR ---
EXAM DATE: 01/02/18 PATIENT'S AGE: 42 Patient: [address] Facility: [place], [place] Site . Site : 1975 Study: XRay Abdomen [id number]/19/2018 12:22:49 AM Ordering Physician: Kavin Jerome Final Report: INDICATION: Right side abdominal pain TECHNIQUE: Abdominal radiograph 3 views COMPARISON: None FINDINGS: Moderate degradation of image quality noted due to body habitus. Bowel: The bowel gas pattern is normal without evidence of bowel obstruction. Soft tissue: No evidence of pneumoperitoneum present. No suspicious calcifications noted. Previous cholecystectomy noted. Bones: Unremarkable for age. IMPRESSION: 1. Unremarkable appearance of the visualized abdomen. Dictated by: Reese Mckoy MD @ 01/03/2018 00:23:42 (Electronic Signature) Report Signed by Proxy. BAY
== END 2018-01-03 01:20 | disposition home or self-care (01) ==
LOC: MW.ED 22:57
DX: N39.0 Urinary tract infection, site not specified (principal); J45.909 Unspecified asthma, uncomplicated; K21.9 Gastro-esophageal reflux disease without esophagitis; Z91.040 Latex allergy status; Z88.0 Allergy status to penicillin; Z79.899 Other long term (current) drug therapy
CPT/HCPCS: 36415; 74019; 80053; 81001; 83690; 85025; 87086; 96361; 96374; 96375; 99283; A9270; J1885; J2405; J7040